=== PATIENT | male | born 1940 | race Caucasian/White ===

== ENCOUNTER 2024-11-18 12:02 | Outpatient (AMB) | payer MEDICARE, OTHER, SELFPAY ==
--- NOTE | 2024-11-18 12:04 | HO.NEPHOV_ITS ---
Vital Signs 11/18/24 12:11 Height 6 ft Weight 150 lb 4 oz BMI 20.4 BP 120/72 Blood Pressure Location Lt brachial Position Sitting Pulse 74 Pulse Source Pulse Oximeter Pulse Oximetry (%) 96 Oxygen Delivery Method Room Air Intake Visit Reasons: ENP: Elevated Serum Creatinine-LVM [employer] Required: No Accompanied by: Self / Same As Patient Allergies No Known Allergies Allergy (Verified 11/18/24 12:11) HPI Comments Details: I had the privilege of seeing Evelio in consultation for mild STEFANIE on a backdrop of acquired solitary kidney following left nephroureterectomy and TURBT for 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 He had lung metastasis in 2019 and had undergone lung resection and radiotherapy. He has hypertension. He is not on any EZEKIEL inhibitor, ARB or diuretics. His blood pressures typically at goal. He recently had a PET scan which was negative. He denies any nausea, vomiting, diarrhea, shortness of breath, pedal edema, hematuria, orthostatic symptoms. He maintains good hydration and has no difficulty voiding. He is in good health and does not take any nonsteroidal anti-inflammatories. His serum creatinine lately has gone up to 1.39. He denied any new systemic complaints. [facility] Medical History (Updated 11/18/24 @ 12:31 by Shawn Ordaz MD) Bladder cancer Right bundle branch block Hypertension Nodular basal cell carcinoma Paroxysmal atrial fibrillation BPH (benign prostatic hyperplasia) GERD (gastroesophageal reflux disease) Hyperlipidemia COPD (chronic obstructive pulmonary disease) CKD (chronic kidney disease) Anxiety Metastasis to lung Metastatic urothelial carcinoma Surgical History History of lobectomy of lung H/O pneumonectomy H/O nephroureterectomy Family History Mother Hypertension Social History (Updated 11/18/24 @ 12:09 by Naomi Bradford MA) Alcohol intake: current Patient Tobacco Use Status: Current someday Tobacco user Review of Systems Const All systems reviewed & are unremarkable except as noted in HPI and below Physical Exam Vital Signs: Last Vital Signs Pulse 74 11/18/24 12:11 BP 120/72 11/18/24 12:11 Pulse Ox 96 11/18/24 12:11 Oxygen Delivery Method Room Air 11/18/24 12:11 BMI result Body Mass Index 20.4 Const General: comfortable and no acute distress Orientation/consciousness: patient oriented x3 HEENT Head: Yes normocephalic Mouth: Normal oral and palatal mucosa present Eyes EOM: EOMs intact bilaterally Neck Neck: Yes supple Resp Auscultation: clear to auscultation bilaterally Cardio Jugular venous distension: no JVD Rate: regular rate GI Palpation (GI): Soft to palpation Auscultation: normal bowel sounds Neuro General: patient oriented x3 and moves all extremities Extrem General: Yes no pedal edema Results Reviewed Nephrology Results: No Data to Display Assessment & Plan Assessment & Plan (1) Hypertension: Code(s): I10 - Essential (primary) hypertension Category: Medical Qualifiers: Hypertension type: primary hypertension Qualified Code(s): I10 - Essential (primary) hypertension (2) Acquired solitary kidney: Code(s): Z90.5 - Acquired absence of kidney Category: Medical (3) CKD stage 3a, GFR 45-59 ml/min: Code(s): N18.31 - Chronic kidney disease, stage 3a Category: Medical Plan Evelio has acquired solitary kidney following left nephroureterectomy in 2017. His serum creatinine has gone up marginally recently most likely due to subtle tubular injury. He has been on PPI for a long time which I asked him to discontinue if there is no strong reason for him to continue it. I encouraged him to maintain good hydration. He has no flank tenderness, edema or urinary symptoms. His blood pressure is currently well controlled on current dose of amlodipine. He is not a diabetic. His serum creatinine is high at baseline due to loss of GFR as well as age related loss of renal function. I encouraged him to repeat lab work in follow-up with me for now. I shall do further exhaustive workup if needed based on evolving data. Answered all questions and follow-up appointment given Orders: Orders Creatinine 6 Months I10 - Essential (primary) hypertension, N18.31 - Chronic kidney disease, stage 3a, Z90.5 - Acquired absence of kidney Electrolytes 6 Months I10 - Essential (primary) hypertension, N18.31 - Chronic kidney disease, stage 3a, Z90.5 - Acquired absence of kidney Protein Creatinine Ratio, Ur 6 Months I10 - Essential (primary) hypertension, N18.31 - Chronic kidney disease, stage 3a, Z90.5 - Acquired absence of kidney Blood Urea Nitrogen 6 Months I10 - Essential (primary) hypertension, N18.31 - Chronic kidney disease, stage 3a, Z90.5 - Acquired absence of kidney Calcium 6 Months I10 - Essential (primary) hypertension, N18.31 - Chronic kidney disease, stage 3a, Z90.5 - Acquired absence of kidney Immunofixation Pnl, Serum 6 Months I10 - Essential (primary) hypertension, N18.31 - Chronic kidney disease, stage 3a, Z90.5 - Acquired absence of kidney Coding Level of Care Code New Pt Level 4 (51491) Diagnoses Primary hypertension I10 Hypertension type: primary hypertension Acquired solitary kidney Z90.5 CKD stage 3a, GFR 45-59 ml/min N18.31
[2024-11-18 12:11] VITALS: BP 120/72; PULSE 74; O2SAT 96; BMI 20.4
--- OUTSIDE RECORDS SUMMARY | 2024-11-18 14:47 | XMS_ITS | Data Portability ---
Author Organization [place] - [facility],, MIKAELA JAMES MD Address [address] [address] Assessment No assessment recorded. Plan of Treatment Reminders Order Date Submit Date Provider Last Modified By Organization Details Last Modified Time Details Appointments None record ed. Lab None record ed. Referral None record ed. Procedures None record ed. Surgeries None record ed. Imaging None record ed. Medication Orders None record ed. Patient TargetsNo targets recorded. Patient InstructionsNo instructions recorded. Reason for Referral None Reported. Medical Equipment None Reported. Allergies No known drug allergies Medications Name Sig Start Date Stop Date Status Note LastModified by Organization Details LastModified Time betamethasone , augmented 0.05 % topical cream APPLY TO ITCHY AREAS IN THE MORNING AND NIGHT FOR 10 DAYS. DO NOT USE ON FACE, GROIN, UNDERARMS. active Not Available Not Available N ot Available amlodipine 2.5 mg tablet TAKE 1 TABLET BY MOUTH EVERY DAY active Not Available Not Available No t Available triamcinolone acetonide 0.1 % topical cream APPLY IN THE MORNING AND EVENING TO TRUNK RASH FOR 1 WEEK NOT FOR FACE active Not Available Not Available No t Available tamsulosin 0.4 mg capsule TAKE 1 CAPSULE BY MOUTH EVERY DAY DIRECTED active Not Available Not Available No t Available pantoprazole 40 mg tablet,delaye d release TAKE 1 TABLET BY MOUTH EVERY DAY active Not Available Not Available No t Available triamcinolone acetonide 0.1 % topical ointment active Not Available Not Available Not Available mupirocin 2 % topical ointment APPLY TWICE A DAY TO AFFECTED AREAS X TILL WE SEE YOU active Not Available Not Available No t Available gabapentin 100 mg capsule TAKE 1 CAPSULE BY MOUTH THREE TIMES A DAY active Not Available Not Available No t Available metoprolol succinate ER 25 mg tablet,extend ed release 24 hr TAKE 1 TABLET BY MOUTH EVERY 12 HOURS active Not Available Not Available No t Available lorazepam 1 mg tablet TAKE 1 TABLET BY MOUTH TWICE A DAY active Not Available Not Available No t Available fluticasone propionate 50 mcg/actuation nasal spray,suspens ion USE ONE SPRAY IN EACH NOSTRIL TWICE DAILY active Not Available Not Available No t Available finasteride 5 mg tablet TAKE 1 TABLET BY MOUTH EVERY DAY active Not Available Not Available No t Available rosuvastatin 10 mg tablet TAKE 1 TABLET BY MOUTH EVERY DAY active Not Available Not Available No t Available Spiriva with HandiHaler 18 mcg and inhalation capsules INHALE THE CONTENTS OF ONE CAPSULE VIA HANDHALER ONCE DAILY active Not Available Not Available N ot Available Eliquis 5 mg tablet TAKE 1 TABLET BY MOUTH TWICE A DAY active Not Available Not Available No t Available Vitals None Recorded Social History None recorded. Functional Status None recorded. Mental Status None recorded. Family History Nothing Reported. Medical History No medical history recorded. Immunizations Vaccine Type Date Status Note Provider Nam e and Address Organization Details Recorded Time COVID-19, mRNA, LNP-S, PF, 100 mcg/0.5mL dose or 50 mcg/0.25mL dose 09/28/2020 completed Mikaela James MD [address] [facility],[address], [place], [address], [facility], 09/28/2020 09:48:42 COVID-19, mRNA, LNP-S, PF, 100 mcg/0.5mL dose or 50 mcg/0.25mL dose 10/27/2020 completed Mikaela James MD [address], [place], [address], [facility] - [facility], 10/27/2020 12:15:53 Past Encounters Encounter ID Performer Location Encounter Start Date Encounter Closed Date Diagnosis/Indication Diagnosis SNOMED-CT Code Diagnosis ICD10 Code Diagnosis Note [id number] MD MIKAELA Vicente MD [address] [place] [address] 09/28/2020 09:17:36 09/28/2020 10:41:14 Administration of viral vaccine [id number] Z23 [id number] MD MIKAELA Vicente MD [address] [place] [address] 10/27/2020 11:34:12 10/27/2020 12:17:27 Administration of viral vaccine [id number] Z23 Health Concerns Section Related Observation LastModified by Organization Detai ls LastModified Time None Recorded Concern Status LastModified by Organization Details LastModified Time None Recorded Advance Directives Directive None Recorded Payers Encounter Date Sequence Insurance Name Policy Number Policy Mclean Covered Member ID Mclean Member ID Guarantor Name 09/28/2020 2 [employer] - SENIOR SERVICES PLAN F (MEDICARE SUPPLEMENT) [id number] 2 Evelio Brumfield [id number] Evelio Brumfield 09/28/2020 1 [place] Evelio Brumfield [id number] Evelio Brumfield 10/27/2020 2 [employer] - SENIOR SERVICES PLAN F (MEDICARE SUPPLEMENT) [id number] 2 Evelio Brumfield [id number] Evelio Brumfield 10/27/2020 1 [place] Evelio Brumfield [id number] 5 Evelio Brumfield
--- OUTSIDE RECORDS SUMMARY | 2024-11-18 14:47 | XMS_ITS | Clinical Summary ---
Author Organization [facility] Address [address] [id number] Care Team Providers Care Business Solutions Director Name Role Phone Akin Forrester MD Primary Care Provider + [phone] Allergies No known active allergies Medications Medication Sig Dispensed Refills Start Date End Date Status rosuvastatin (CRESTOR) tablet 10 mg Take 1 tablet (10 mg total) by mouth daily. 0 Active pantoprazole (PROTONIX) 40 MG tablet Take 1 tablet (40 mg total) by mouth every morning on an empty stomach. 0 Active LORazepam (ATIVAN) 0.5 MG tablet Take 1 tablet (0.5 mg total) by mouth every 6 (six) hours as needed. 0 Active finasteride (PROSCAR) 5 MG tablet Take 1 tablet (5 mg total) by mouth daily. 0 Active Tiotropium [place] Monohydrate (SPIRIVA HANDIHALER IN) Inhale into the lungs. 0 Active tamsulosin (FLOMAX) 0.4 MG CAPS Take 1 capsule (0.4 mg total) by mouth daily. 0 Active metoprolol succinate (TOPROL-XL) 24 hr tablet 25 mg Take by mouth daily. 0 Active apixaban (ELIQUIS) 5 MG TABS tablet Take by mouth every 12 (twelve) hours. 0 Active amLODIPine (NORVASC) tablet 2.5 mg Take 1 tablet (2.5 mg total) by mouth daily. 0 09/23/2020 Active gabapentin (NEURONTIN) 300 MG capsule Take 2 capsules (600 mg total) by mouth 3 (three) times a day as needed. 0 11/02/2020 Active Umeclidinium [place] (Incruse Ellipta) 62.5 MCG/INH AEPB Inhale into the lungs. 0 Active simvastatin (ZOCOR) tablet 10 mg Take 2 tablets (20 mg total) by mouth every night at bedtime. 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 Social History Tobacco Use Types Packs/Day Years Used Date Smoking Tobacco: Every Day Cigarettes 0.5 Smokeless Tobacco: Never Alcohol Use Standard Drinks/Week Comments Yes 0 (1 standard drink = 0.6 oz pur e alcohol) daily Sex and Gender Information Value Date Recorded Sex Assigned at Not on file Gender Identity Not on file Sexual Orientation Not on file Job Start Date Occupation Industry Not on file Not on file Not on file Last Filed Vital Signs Vital Sign Reading Time Taken Comments Blood Pressure 118/68 01/23/2023 11:40 AM EDT Pulse 111 01/23/2023 11:40 AM EDT Temperature 36.7 ??C (98 ??F) 01/23/2023 11:40 AM EDT Respiratory Rate - - Oxygen Saturation 97% 01/23/2023 11:40 AM EDT Inhaled Oxygen Concentration - - Weight 66.8 kg (147 lb 3.2 oz) 01/23/2023 11:40 AM EDT Height 182.9 cm (6') 01/23/2023 11:40 AM EDT Body Mass Index 19.96 01/23/2023 11:40 AM EDT Plan of Treatment Health Maintenance Due Date Last Done Comments Pneumococcal Vaccine (1 of 2 - PCV) 1947 Depression Screening 1953 Preventative Health Evaluation 1959 Tobacco Cessation Counseling 1959 DTap / Tdap / Td (1 - Tdap) 1960 Shingrix-Zoster Vaccine (1 o f 2) 1991 Fall Risk Assessment 2006 RSV Adult > 60+ Yrs or (1 - 1-dose 75+ series) 2016 COVID-19 Vaccine (3 2023-2 5 season) 2024 10/27/2020, 09/28/2020 Influenza Vaccine (#1) 2024 Hepatitis B Vaccines Aged Out No long er eligible based on patient's age to complete this topic RSV Ped < 20 months Aged Out No longe r eligible based on patient's age to complete this topic Care Teams Business Solutions Director Relationship Specialty Start Date End Date Akin Forrester MD [address] [address] PCP - General Internal Medicine 12/30/18
--- OUTSIDE RECORDS SUMMARY | 2024-11-18 14:47 | XMS_ITS | Clinical Summary ---
Author Organization [facility] Address [address] [place] [address] Phone Care Team Providers Care Senior Manager Mmcoe Name Role Phone Akin Forrester MD Primary Care Provider + [phone] Allergies No known active allergies Medications Eliquis 5 mg tablet Take 1 tablet (5 mg total) by mouth 2 (two) times a day. Active finasteride (PROSCAR) 5 mg tablet Take 1 tablet (5 mg total) by mouth 1 (one) time each day. Active LORazepam (ATIVAN) 1 mg tablet Take 1 tablet (1 mg total) by mouth 2 (two) times a day. Active metoprolol succinate (TOPROL-XL) 25 mg 24 hr tablet Take 1 tablet (25 mg total) by mouth every 12 (twelve) hours. Active pantoprazole (PROTONIX) 40 mg EC tablet Take 1 tablet (40 mg total) by mouth 1 (one) time each day. Active simvastatin (ZOCOR) 20 mg tablet Take 1 tablet (20 mg total) by mouth 1 (one) time each day in the evening. Active tamsulosin (FLOMAX) 0.4 mg 24 hr capsule Take 1 capsule (0.4 mg total) by mouth 1 (one) time each day. Active Incruse Ellipta 62.5 mcg/actuation inhalation INHALE 1 DOSE DAILY Active amLODIPine (NORVASC) 2.5 mg tablet Take by mouth 1 (one) time each day. Active amLODIPine (NORVASC) 5 mg tablet Take 1 tablet (5 mg total) by mouth 1 (one) time each day. 07/17/20 24 025 Discontinued atorvastatin (Lipitor) 10 mg tablet Take 1 tablet (10 mg total) by mouth. 12/11/19 06 025 Discontinued fluticasone propionate (FLONASE) 50 mcg/actuation nasal spray Administer 1 spray into each nostril 2 (two) times a day. 025 Discontinued Active Problems Problem Noted Date Diagnosed Date Secondary malignant neoplasm of right lung 07/17 Hypertension 06/27/2021 Overview (08/25/2024): Last Assessment & Plan: 120/60 in office today, well-controlled. Continue metoprolol and amlodipine. Hyperlipidemia 06/27/2021 Overview (08/25/2024): Last Assessment & Plan: Last lipid panel from March 2023. Total cholesterol 127, HDL 48, LDL 62. Continue statin therapy. Paroxysmal atrial fibrillation 12/13/2020 Overview (08/25/2024): Last Assessment & Plan: He presents in sinus rhythm. He has episodic PAF. He will continue rate control with metoprolol. Holter reviewed. He will continue anticoagulation with Eliquis 5 mg twice daily as his age is less than 80, weight is greater than 60 kg, creatinine is less than 1.5. Risks and benefits of anticoagulation therapy have been discussed with the patient. He verbalizes understanding and agrees to continue. Right bundle branch block 12/13/2020 Overview (08/25/2024): Last Assessment & Plan: I did review with him his ECG today does demonstrate the right bundle branch block which he has had in the past. Encounters Date Type Department Care Team Description 11/06/2024 2:00 PM EST Office Visit [facility] Hematology Oncology [address] [place] [phone] Lizzy Gil DO Urothelial cancer (CMS/HCC) (Primary Dx) 10/29/2024 Telephone [facility] Hematology Oncology [address] [place] [phone] Lizzy Gil DO 10/02/2024 Telephone [facility] Hematology Oncology [address] [place] [address] Lizzy Gil, 09/16/2024 12:27 PM EST - 09/16/2024 11:59 PM EST Hospital Encounter [facility] PET Scan [address] [place] [address] Secondary malignant neoplasm of right lung (CMS/HCC) Discharge Disposition: Home or Self Care from Last 3 Months Immunizations Name Administration Dates Next Due Moderna SARS-CoV-2 COVID-19, mRNA, LNP-S, preservative free 10/27/2020,09/28/2020 Medical History Medical History Date Comments Anxiety DX:Anxiety Chronic kidney disease DX:Chroni c kidney disease COPD (chronic obstructive pu lmonary disease) (CMS/HCC) DX:COPD (chronic obstructive pulmonary disease) (HCC) GERD (gastroesophageal reflux disease) DX:GERD (gastroesophageal reflux disease) Benign prostatic hyperplasia DX: Benign prostatic hyperplasia Family History Medical History Relation Name Comments Other: pacemaker Brother Relation Name Status Comments Brother Father Mother Social History Tobacco Use Types Packs/Day Years Used Date Smoking Tobacco: Some Days Smokeless Tobacco: Never Tobacco Cessation:Ready to Q uit: Not Asked; Counseling Given: Not Answered Comments:Couple times a day. Alcohol Use Standard Drinks/Week Comments Yes 0 (1 standard drink = 0.6 oz pur e alcohol) Sex and Gender Information Value Date Recorded Sex Assigned at Not on file Legal Sex Male 11:29 AM EST Gender Identity Not on file Sexual Orientation Not on file Obstetrics History Last Filed Vital Signs Vital Sign Reading Time Taken Comments Blood Pressure 137/71 11/06/2024 1:53 PM EST Pulse 69 11/06/2024 1:53 PM EST Temperature 37.1 ??C (98.8 ??F) 11/06/2024 1:53 PM ES T Respiratory Rate 16 07/30/2024 2:21 PM EST Oxygen Saturation 100% 11/06/2024 1:53 PM EST Inhaled Oxygen Concentration - - Weight 69.3 kg (152 lb 12.8 oz) 11/06/2024 1:53 PM EST Height 182.9 cm (6') 11/06/2024 1:53 PM EST Body Mass Index 20.72 11/06/2024 1:53 PM EST Plan of Treatment Upcoming Encounters Date Type Department Care Team (Late st Contact Info) Description 02/12/2025 2:00 PM EDT Appointment [facility] CT Scan [address] [place] [phone] 02/19/2025 2:00 PM EDT Appointment [facility] Radiation Oncology [address] [phone] Maeve Hinton, EILEEN [address], [place] [phone] 11/05/2025 1:30 PM EST Office Visit [facility] Hematology Oncology [address] [place] [phone] Lizzy Gil, [address] [place] [address] Health Maintenance Due Date Last Done Comments DTaP,Tdap,and Td Vaccines (1 - Tdap) 1959 RSV Immunization Patients 60+ Years Old (1 - 1-dose 75+ series) 2016 Zoster Vaccines (2 of 2) 05/05/2021 03/10/2021 Depression Screening 08/17/2022 Falls Risk Assessment 08/17/2022 Medicare Annual Wellness Visit 08/17/2022 Social Influencers of Health Screening 08/17/2022 COVID-19 Vaccine ( season) 2024 07/28/2022, 07/25/2021, 10/27/2020, Additional history exists Hypertension/CHF/CAD Annual BMP Blood Test 07/24/2025 07/24/2024 Cholesterol Screening (Lipid Panel) 12/09/2028 12/10/2023 Pneumococcal Vaccine: 50+ Years Completed 10/09/2023, 07/23/2015 Influenza Vaccine Completed 06/25/2024, , 05/26/2022, Additional history exists HIB Vaccines Aged Out No longer eligi ble based on patient's age to complete this topic HPV Vaccines Aged Out No longer eligi ble based on patient's age to complete this topic Hepatitis A Vaccines Aged Out No long er eligible based on patient's age to complete this topic Hepatitis B Vaccines Aged Out No long er eligible based on patient's age to complete this topic IPV Vaccines Aged Out No longer eligi ble based on patient's age to complete this topic MMR Vaccines Aged Out No longer eligi ble based on patient's age to complete this topic Meningococcal ACWY Vaccine Aged Out N o longer eligible based on patient's age to complete this topic Meningococcal B Vacine Aged Out No lo nger eligible based on patient's age to complete this topic RSV Immunization Patients Under 20 months Aged Out No longer eligible based on patient's age to complete this topic Varicella Vaccines Aged Out No longer eligible based on patient's age to complete this topic Procedures Procedure Name Priority Date/Time Associated Diagnosis Comments PET CT SKULL TO MID THIGH INITIAL STAT 09/16/2024 1:49 PM EST Secondary malignant neoplasm of right lung (CMS/HCC) CREATININE, SERUM Routine 07/24/2024 1:5 4 PM EST Secondary malignant neoplasm of right lung (CMS/HCC) LIPID PANEL Routine 12/10/2023 from Last 3 Months or Most Recently Relevant to Health Maintenance Results * PET CT Skull to Mid Thigh Initial (09/16/2024 1:49 PM EST) Anatomical Region Laterality Modality Body Radiographic Suze ging 09/17/2024 5:03 AM EST Impressions 09/17/2024 5:55 AM EST 1. ??Interval decrease in FDG activity of juxtapleural nodule in the right upper lobe and mild asymmetric increased FDG activity in the right lung apex corresponding to asymmetric pleural-parenchymal scarring likely representing posttreatment change 2. ??Persistent right hilar FDG activity 3. ??Other scattered nodules/opacities similar to prior. ??These can be followed with chest CT. Please note: The CT was acquired at a low radiation dose settings. ??The images are of nondiagnostic quality and used solely for purposes of attenuation correction and slice localization for the PET scan. ??If a diagnostic CT study is desired it must be ordered separately. -------- FINAL REPORT -------- Dictated By: Kaitlin Zavala Dictated Date: 09/17/2024 05:03 ET Assigned Physician: Kaitlin Zavala Reviewed and Electronically Signed By: Kaitlin Zavala Signed Date: 09/17/2024 05:55 ET Workstation ID: [id number] Transcribed By: Self Edit Transcribed Date: 09/17/2024 05:03 ET Narrative 09/17/2024 5:55 AM EST INDICATION: lung cancer restaging. ??Metastatic urothelial carcinoma involving the lung status post left upper lobe wedge resection in 2016) and SBRT left lower lobe metastases in 2019. TECHNIQUE: FDG PET-CT imaging was performed from the skull bases through the thighs in a single acquisition with data set reconstructed in axial, coronal, and sagittal planes at the computer workstation with fused data from both the PET imaging study and attenuation correction CT. The CT portion of the examination was done strictly for attenuation correction and is not a true diagnostic CT examination. DLP: ??419 mGy-cm Radiopharmaceutical: 13.5 mCi of F-18 FDG IV. Blood glucose: 88 mg/dl. COMPARISON: Correlation is made with prior chest CT dated July 2024 as well as prior PET/CT dated August 2023. FINDINGS: HEAD AND NECK: No abnormal FDG activity. THORAX: Asymmetric right-sided calcified pleural parenchymal scarring SUV Max 2.8 (previously 1.7 SUV max) which may represent stigmata of posttreatment change. Juxtapleural nodule in the right upper lobe SUV max 2.1 (previously 3.6). ??Tiny sub-5 mm nodules/opacities in the right upper lobe/pleural region SUV max 2.0; overall similar to prior possibly representing postinfectious/postinflammatory etiology versus scarring. ??Attention to this area can be made on follow-up imaging. 8 mm juxtapleural opacity in the right lower lobe lung base SUV max 1.6; similar to prior. Chronic tree-in-bud/centrilobular nodules in the right lower lobe SUV max 2.5 (previously 2.8). Architectural distortion in the superior segment of the left lower lobe SUV max 2.0; similar to prior in keeping with site of prior radiation therapy. ??Postsurgical change in the left upper lobe. Right paratracheal lymph nodes SUV max 2.7 and right hilar lymph node SUV max 3.5 (previously 3.2) (mediastinal blood pool SUV Max 3.2). ABDOMEN/PELVIS: No abnormal FDG activity. ??Status post left nephrectomy. ??Diverticulosis with nonspecific scattered bowel uptake. ??Prominent prostate gland. ??Atherosclerosis. ??Thickening of the left adrenal gland without significant FDG activity. MUSCULOSKELETAL: Asymmetric FDG activity right iliac bone SUV max 2.1 (previously 2.2); similar to prior. ??Asymmetric FDG activity along the right iliac sides near the sacroiliac joint corresponding to focal area of sclerosis SUV Max 2.1; similar to prior. Procedure Note Kaitlin Zavala MD - 09/17/2024 INDICATION: lung cancer restaging. Metastatic urothelial carcinomainvolving the lung status post left upper lobe wedge resection in 2016)and SBRT left lower lobe metastases in 2019. TECHNIQUE: FDG PET-CT imaging was performed from the skull bases throughthe thighs in a single acquisition with data set reconstructed in axial,coronal, and sagittal planes at the computer workstation with fused datafrom both the PET imaging study and attenuation correction CT. The CTportion of the examination was done strictly for attenuation correctionand is not a true diagnostic CT examination. DLP: 419 mGy-cm Radiopharmaceutical: 13.5 mCi of F-18 FDG IV. Blood glucose: 88 mg/dl. COMPARISON: Correlation is made with prior chest CT dated July 2024 aswell as prior PET/CT dated August 2023. FINDINGS: HEAD AND NECK: No abnormal FDG activity. THORAX: Asymmetric right-sided calcified pleural parenchymal scarring SUVMax 2.8 (previously 1.7 SUV max) which may represent stigmata ofposttreatment change. Juxtapleural nodule in the right upper lobe SUV max 2.1 (previously 3.6).Tiny sub-5 mm nodules/opacities in the right upper lobe/pleural region SUVmax 2.0; overall similar to prior possibly representingpostinfectious/postinflammatory etiology versus scarring. Attention tothis area can be made on follow-up imaging. 8 mm juxtapleural opacity in the right lower lobe lung base SUV max 1.6;similar to prior. Chronic tree-in-bud/centrilobular nodules in the right lower lobe SUV max2.5 (previously 2.8). Architectural distortion in the superior segment of the left lower lobeSUV max 2.0; similar to prior in keeping with site of prior radiationtherapy. Postsurgical change in the left upper lobe. Right paratracheal lymph nodes SUV max 2.7 and right hilar lymph node SUVmax 3.5 (previously 3.2) (mediastinal blood pool SUV Max 3.2). ABDOMEN/PELVIS: No abnormal FDG activity. Status post left nephrectomy.Diverticulosis with nonspecific scattered bowel uptake. Prominentprostate gland. Atherosclerosis. Thickening of the left adrenal glandwithout significant FDG activity. MUSCULOSKELETAL: Asymmetric FDG activity right iliac bone SUV max 2.1(previously 2.2); similar to prior. Asymmetric FDG activity along theright iliac sides near the sacroiliac joint corresponding to focal area ofsclerosis SUV Max 2.1; similar to prior. IMPRESSION: 1. Interval decrease in FDG activity of juxtapleural nodule in the rightupper lobe and mild asymmetric increased FDG activity in the right lungapex corresponding to asymmetric pleural-parenchymal scarring likelyrepresenting posttreatment change 2. Persistent right hilar FDG activity 3. Other scattered nodules/opacities similar to prior. These can befollowed with chest CT. Please note: The CT was acquired at a low radiation dose settings. The images are ofnondiagnostic quality and used solely for purposes of attenuationcorrection and slice localization for the PET scan. If a diagnostic CTstudy is desired it must be ordered separately. -------- FINAL REPORT -------- Dictated By: Kaitlin Zavala Dictated Date: 09/17/2024 05:03 ET Assigned Physician: Kaitlin Zavala Reviewed and Electronically Signed By: Kaitlin Zavala Signed Date: 09/17/2024 05:55 ET Workstation ID: [id number] Transcribed By: Self Edit Transcribed Date: 09/17/2024 05:03 ET us Lizzy Gil DO IMG NM PROCEDURES Fin al Result * (ABNORMAL) Creatinine (07/24/2024 1:54 PM EST) Creatinine 1.40(H) 0.70 - 1.30 mg/dL LAB CHEMISTRY METHOD 07/24/2024 5:26 PM EST [facility] eGFR 50(L) >=60 mL/min/1. 73m2 LAB CHEMISTRY METHOD 07/24/2024 5:26 PM EST [facility] Comment:Calculation based on the??Chronic Kidney Disease Epidemiology Collaboration (CKD-EPI) equation refit??without adjustment for race. Blood Venous blood specimen / Unknown Venipuncture / Unknown 07/24/2024 1:54 PM EST 07/24/2024 4:42 PM EST Melly Devlin MD LAB BLOOD ORDERABLES Final R esult [facility]) [facility] [address] [place] [address], * Lipid panel (12/10/2023) Triglycerides 81 <=150 mg/dL Cholesterol 135 <=200 mg/dL HDL 49 >=39 mg/dL LDL Cholesterol 70 0 - 130 mg/dL Blood Venous blood specimen / Unknown Historical Provider LAB BLOOD ORDERABLES Alee l Result from Last 3 Months or Most Recently Relevant to Health Maintenance Insurance MEDICARE [facility] Care Teams Senior Manager Mmcoe Relationship Specialty Start Date End Date Akin Forrester MD [address] [place] [id number] PCP - General Internal Medicine 02/05/18
--- OUTSIDE RECORDS SUMMARY | 2024-11-18 14:47 | XMS_ITS | Encounter Summary ---
Author Organization [facility] Address [address] [place] [address] Care Team Providers Care Machine Tech Name Role Phone Akin Forrester MD Primary Care Provider + [phone] Encounter Details Date Type Department Care Team (Late st Contact Info) Description 10/29/2024 Telephone [facility] Hematology Oncology [address] [place] [phone] Lizzy Gil DO [address] [place] [address] Social History Tobacco Use Types Packs/Day Years Used Date Smoking Tobacco: Some Days Smokeless Tobacco: Never Alcohol Use Standard Drinks/Week Comments Yes 0 (1 standard drink = 0.6 oz pur e alcohol) Sex and Gender Information Value Date Recorded Sex Assigned at Not on file Legal Sex Male 11:29 AM EST Gender Identity Not on file Sexual Orientation Not on file documented as of this encounter Progress Notes * Lizzy Gil DO - 11/03/2024 12:30 PM EST Patient has not been seen in office since January 2023 Needs to be seen in order to continue follow up and appropriate care, and ordering future scans * Deidre Delvalle MA - 10/29/2024 9:55 AM EST is back in office this Sunday. can you please advise. * Martha Mcbride - 10/29/2024 9:31 AM EST [place] PATIENT Patient states he has had several scans that report that everything is fine and normal . Asks if the appt on 11/06 with MD is necessary. Asks for call [phone] documented in this encounter Plan of Treatment Upcoming Encounters Date Type Department Care Team (Late st Contact Info) Description 02/12/2025 2:00 PM EDT Appointment [facility] CT Scan [address] [place] [phone] 02/19/2025 2:00 PM EDT Appointment [facility] Radiation Oncology [address] [phone] Maeve Hinton, GENERAL CLERK [address] [place] [address] 11/05/2025 1:30 PM EST Office Visit [facility] Hematology Oncology [address] [place] [phone] Lizzy Gil, DO [address] [place] [address] documented as of this encounter Visit Diagnoses Not on filedocumented in this encounter Care Teams Machine Tech Relationship Specialty Start Date End Date Akin Forrester MD [address] [place] [id number] PCP - General Internal Medicine 02/05/18 documented as of this encounter
--- OUTSIDE RECORDS SUMMARY | 2024-11-18 14:47 | XMS_ITS | Encounter Summary ---
Author Organization [facility] Address [address] [place] [address] Care Team Providers Care Pollution Control Chemist Name Role Phone Akin Forrester MD Primary Care Provider + [phone] Reason for Visit * Reason Comments Follow-up Encounter Details Date Type Department Care Team ([facility] st Contact Info) Description 11/06/2024 2:00 PM EST Office Visit [facility] Hematology Oncology [address] [place] [phone] Lizzy Gil, DO [address] [place] [address] Urothelial cancer (CMS/HCC) (Primary Dx) Social History Tobacco Use Types Packs/Day Years [...] on file documented as of this encounter Last Filed Vital Signs Vital Sign Reading Time Taken Comments Blood Pressure 137/71 11/06/2024 1:53 PM EST Pulse 69 11/06/2024 1:53 PM EST Temperature 37.1 ??C (98.8 ??F) 11/06/2024 1:53 PM ES T Respiratory Rate - - Oxygen Saturation 100% 11/06/2024 1:53 PM EST Inhaled Oxygen Concentration - - Weight 69.3 kg (152 lb 12.8 oz) 11/06/2024 1:53 PM EST Height 182.9 cm (6') 11/06/2024 1:53 PM EST Body Mass Index 20.72 11/06/2024 1:53 PM EST documented in this encounter Progress Notes * Lizzy Gil, DO - 11/06/2024 2:00 PM EST Hematology/Oncology Progress Note 11/06/24 Subjective Patient identifier: 84 y.o. male with metastatic urothelial cancer Interim history: Evelio is here for follow up He had radiation to the lung one year ago . Has not been seen since 2022, was lost to follow up Seen by PCP and urology recently. Last month had URI and sinus infection, better now after antibiotics. His appetite is good overall. No new severe back pain or bone pain. Appetite is fine. Constitutional: see above Resp/CV: No cough, shortness of breath, chest pain GI: No nausea, vomiting, diarrhea, abdominal pain Skin: No rashes Neuro: No headaches, dizziness, neuropathy Musculoskeletal: No bone pain, no joint pain. Hem/Lymph : No bruising or bleeding Objective Last Vitals Vitals: 11/06/24 1353 BP: 137/71 Pulse: 69 Temp: 37.1 ??C (98.8 ??F) SpO2: 100% ECO General: well appearing, in no acute distress HENT: no scleral icterus Lymph: No palpable cervical, supraclavicular or axillary adenopathy. Resp: clear to auscultation bilaterally Cardio: regular rate and rhythm, Abdomen: soft non tender, non distended Neuro: alert and oriented, normal speech Medications Current Outpatient Medications: amLODIPine (NORVASC) 2.5 mg tablet, Take by mouth 1 (one) time each day., Disp: , Rfl: amLODIPine (NORVASC) 5 mg tablet, Take 1 tablet (5 mg total) by mouth 1 (one) time each day., Disp:, Rfl: Eliquis 5 mg tablet, Take 1 tablet (5 mg total) by mouth 2 (two) times a day., Disp: , Rfl: finasteride (PROSCAR) 5 mg tablet, Take 1 tablet (5 mg total) by mouth 1 (one) time each day., Disp: , Rfl: Incruse Ellipta 62.5 mcg/actuation inhalation, INHALE 1 DOSE DAILY, Disp: , Rfl: LORazepam (ATIVAN) 1 mg tablet, Take 1 tablet (1 mg total) by mouth 2 (two) times a day., Disp: , Rfl: metoprolol succinate (TOPROL-XL) 25 mg 24 hr tablet, Take 1 tablet (25 mg total) by mouth every 12 (twelve) hours., Disp: , Rfl: pantoprazole (PROTONIX) 40 mg EC tablet, Take 1 tablet (40 mg total) by mouth 1 (one) time each day., Disp: , Rfl: simvastatin (ZOCOR) 20 mg tablet, Take 1 tablet (20 mg total) by mouth 1 (one) time each day in theevening., Disp: , Rfl: tamsulosin (FLOMAX) 0.4 mg 24 hr capsule, Take 1 capsule (0.4 mg total) by mouth 1 (one) time each day., Disp: , Rfl: atorvastatin (Lipitor) 10 mg tablet, Take 1 tablet (10 mg total) by mouth., Disp: , Rfl: fluticasone propionate (FLONASE) 50 mcg/actuation nasal spray, Administer 1 spray into each nostril2 (two) times a day., Disp: , Rfl: Allergies No Known Allergies Past medical history, past surgical history, and family history reviewed. Medical history Past Medical History: Diagnosis Date Anxiety DX:Anxiety Benign prostatic hyperplasia DX:Benign prostatic hyperplasia Chronic kidney disease DX:Chronic kidney disease COPD (chronic obstructive pulmonary disease) ([facility]/HCC) DX:COPD (chronic obstructive pulmonary disease) ([facility]) GERD (gastroesophageal reflux disease) DX:GERD (gastroesophageal reflux disease) Surgical history No past surgical history on file. Family history Family History Problem Relation Name Age of Onset Other (Other: pacemaker ) Brother Social history lives with who has dementia Labs: Relevant data reviewed. Lab Results Component Value Date CREATININE 1.40 (H) 07/24/2024 Imaging Studies Imaging studies reviewed. INDICATION: lung cancer restaging. Metastatic urothelial carcinoma involving the lung status post [...] and attenuation correction CT. The CT portion ofthe examination was done strictly for attenuation correction [...] upper lobe SUV max 2.1 (previously 3.6). Tiny sub-5 mm nodules/opacities in the right upper lobe/pleural region SUV max 2.0; overall similar to prior possibly representing postinfectious/postinflammatory etiology versus scarring. Attention to this area can be made on [...] keeping with site of prior radiation therapy. Postsurgical change in the left upper lobe. Right paratracheal lymph nodes SUV max 2.7 and right hilar lymph node SUV max 3.5 (previously 3.2) (mediastinal blood pool SUV Max 3.2). ABDOMEN/PELVIS: No abnormal FDG activity. Status post left nephrectomy. Diverticulosis with nonspecific scattered bowel uptake. Prominent prostate gland. Atherosclerosis. Thickening of the left adrenal gland without significant FDG activity. MUSCULOSKELETAL: Asymmetric FDG activity right iliac bone SUV max 2.1 (previously 2.2); similar to prior. Asymmetric FDG activity along the right iliac sides near the sacroiliac joint corresponding to focal area of sclerosis SUV Max 2.1; similar to prior. IMPRESSION: 1. Interval decrease in FDG activity of juxtapleural nodule in the right upper lobe and mild asymmetric increased FDG activity in the right lung apex corresponding to asymmetric pleural-parenchymal scarring likely representing posttreatment change 2. Persistent right hilar FDG activity 3. Other scattered nodules/opacities similar to prior. These can be followed with chest CT. -------- FINAL REPORT -------- Dictated By: Kaitlin Zavala Dictated Date: 09/17/2024 05:03 ET Assigned Physician: Kaitlin Zavala Reviewed and Electronically Signed By: Kaitlin Zavala Signed Date: 09/17/2024 05:55 ET Workstation ID: [id number] Transcribed By: Self Edit Transcribed Date: 09/17/2024 05:03 ET Assessment & Plan 84 y.o. presents for follow up of metastatic urothelial carcinoma. He has had multiple recurrent slow moving metastasis to the lungs over past six years, had one resected and two radiated. Follow up PET scan shows no progressive metastatic disease. Given no bulky disease would not recommend systemic therapy at this time . He has 8mm nodule in RLL would monitor this for now. Metastatic urothelial carcinoma Continue to monitor , would not initiate on systemic chemotherapy No new large areas of disease He has CT Scan planned for two weeks from now with rad onc- will discuss likely they can move this out three months given he just had PET scan He prefers to return here only in one year which is fine only if he has scans with radiation oncology in between Sign Randi Gil DO - Hematology/Oncology [facility] CC: Akin Forrester MD documented in this encounter Plan of Treatment Upcoming Encounters Date Type Department Care Team (Late st Contact Info) Description 02/12/2025 2:00 PM EDT Appointment [facility] CT Scan [address] [place] [address] 02/19/2025 2:00 PM EDT Appointment [facility] Radiation Oncology [address] [phone] Maeve Hinton NP [address] [place] [address] 11/05/2025 1:30 PM EST Office Visit [facility] Hematology Oncology [address] [place] [address] Lizzy Gil DO [address] [place] [address] documented as of this encounter Visit Diagnoses Diagnosis Urothelial cancer (CMS/HCC)- Primary documented in this encounter Discontinued Medications Medication Sig Discontinue Reason Start Date End Da te amLODIPine (NORVASC) 5 mg tablet Take 1 tablet (5 mg total) by mouth 1 (one) time each day. 07/17/2024 11/06/2024 atorvastatin (Lipitor) 10 mg tablet Take 1 tablet (10 mg total) by mouth. 12/10/2005 11/06/2024 fluticasone propionate (FLONASE) 50 mcg/actuation nasal spray Administer 1 spray into each nostril 2 (two) times a day. 11/06/2024 documented as of this encounter Historical Medications * This list may reflect changes made after this encounter. amLODIPine (NORVASC) 2.5 mg tablet Take by mouth 1 (one) time each day. added in this encounter Care Teams Pollution Control Chemist Relationship Specialty Start Date End Date Akin Forrester MD [address] [place] [id number] PCP - General Internal Medicine 02/05/18 documented as of this encounter
== END 2024-11-18 12:40 | disposition home or self-care (01) ==
LOC: HO.HKAS 12:03
PROVIDERS: PCP Internal Medicine; Referring Provider Internal Medicine; Visit Provider Internal Medicine Nephrology
DX: I10 Essential (primary) hypertension (principal); Z90.5 Acquired absence of kidney; N18.31 Chronic kidney disease, stage 3a
CPT/HCPCS: 99204

== ENCOUNTER → 2024-11-18 12:02 | Outpatient (BNVA) | payer MEDICARE, OTHER, SELFPAY | PROVIDERS: PCP Internal Medicine; Referring Provider Internal Medicine; Visit Provider Internal Medicine Nephrology | DX: I12.9 Hypertensive chronic kidney disease with stage 1 through stage 4 chronic kidney disease, or unspecified chronic kidney disease (principal); N18.31 Chronic kidney disease, stage 3a; Q60.0 Renal agenesis, unilateral; Z90.5 Acquired absence of kidney | CPT/HCPCS: 99202 ==

== ENCOUNTER 2025-05-19 12:47 | Outpatient (AMB) | payer MEDICARE, OTHER, SELFPAY ==
--- OUTSIDE RECORDS SUMMARY | 2025-04-16 02:30 | XMS_ITS ---
Author Organization [facility] Address [address] [place], [place] [id number] Care Team Providers Care Manager State Name Role Phone ARIELLE CASTILLO Primary Care Provider REASON FOR VISIT labs Encounters Encounter Location Date Provider Diagnosis [facility] [address] [place] [address] 04/16/2025 ARIELLE CASTILLO Abnormal protein electrophoresis R77.9 ASSESSMENTS Encounter Date Diagnosis Assessment Notes Treatment Notes Treatment Clinical Notes Section Notes 04/16/2025 Abnormal protein electrophoresis (ICD-10 - R77.9) PLAN OF TREATMENT Future Test Test Name Order Date Immunofixation, [id number] 05/14/2025 Immunoglobulin G, Qn, [id number] 05/14 Immunoglobulin M, Qn, [id number] 05/14 Immunoglobulin D, Quant, Serum-[id number] Free K+L Lt Chains,Qn,[id number] Protein Elec + Interp, Serum-[id number] 12/2024 BMP8+[id number] 05/14/2025 Next Appt Details Provider Name:ARIELLE KIM, 09/29/2025 02:15:00 PM, [address] [place], [address],
--- OUTSIDE RECORDS SUMMARY | 2025-05-05 11:39 | XMS_ITS ---
Author Organization [facility] Address [address] [place] [phone] Care Team Providers Care International Account Manager Name Role Phone ARIELLE CASTILLO Primary Care Provider [phone] REASON FOR VISIT Pt there now Encounters Encounter Location Date Provider Diagnosis [facility] [address] [place] [phone] 05/05/2025 ARIELLE CASTILLO PLAN OF TREATMENT Next Appt Details Provider Name:ARIELLE KIM, 09/29/2025 02:15:00 PM, [address] [place], [address],
--- OUTSIDE RECORDS SUMMARY | 2025-05-05 18:29 | XMS_ITS ---
Author Organization [facility] Address [address] [place] [phone] Care Team Providers Care Baggage Inspector Name Role Phone ARIELLE CASTILLO Primary Care Provider [phone] gonzalez Encounters Encounter Location Date Provider Diagnosis [address] [address] 05/05/2025 ARIELLE CASTILLO PLAN OF TREATMENT Next Appt Details Provider Name:ARIELLE KIM, 09/29/2025 02:15:00 PM, [address] [place], [address],
--- OUTSIDE RECORDS SUMMARY | 2025-05-07 12:24 | XMS_ITS ---
Author Organization [facility] Address [address] [place] [phone] Care Team Providers Care Small Stock Facer Name Role Phone ARIELLE CASTILLO Primary Care Provider [phone] barnett Encounters Encounter Location Date Provider Diagnosis [address] [address] 05/07/2025 ARIELLE CASTILLO PLAN OF TREATMENT Next Appt Details Provider Name:ARIELLE KIM, 09/29/2025 02:15:00 PM, [address] [place], [address],
--- OUTSIDE RECORDS SUMMARY | 2025-05-08 11:10 | XMS_ITS ---
Author Organization [facility] Address [address] [place] [phone] Care Team Providers Care Edging Catcher Name Role Phone ARIELLE CASTILLO Primary Care Provider REASON FOR VISIT dr magallon Encounters Encounter Location Date Provider Diagnosis [facility] [address] [place] [phone] 05/08/2025 ARIELLE CASTILLO PLAN OF TREATMENT Next Appt Details Provider Name:ARIELLE KIM, 09/29/2025 02:15:00 PM, [address] [place], [address],
--- NOTE | 2025-05-19 12:56 | HO.NEPHOV ---
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 He had lung metastasis in 2019 and had undergone lung resection and radiotherapy. He has hypertension. He is not on any EZEKIEL inhibitor, ARB or diuretics. His blood pressures is typically at goal. He recently had a PET scan which was negative. He denies any nausea, vomiting, diarrhea, shortness of breath, pedal edema, hematuria, orthostatic symptoms. He maintains good hydration and has no difficulty voiding. He is in good health and does not take any nonsteroidal anti-inflammatories. His serum creatinine lately has gone up to 1.6. He has a monoclonal band by immunofixation. He denied any new systemic complaints. [facility] Medical History (Updated 05/19/25 @ 12:59 by Shawn Ordaz MD) Bladder cancer Right bundle branch block Hypertension Nodular basal cell carcinoma Paroxysmal atrial fibrillation BPH (benign prostatic hyperplasia) GERD (gastroesophageal reflux disease) Hyperlipidemia COPD (chronic obstructive pulmonary disease) CKD (chronic kidney disease) Anxiety Metastasis to lung Metastatic urothelial carcinoma Surgical History History of lobectomy of lung H/O pneumonectomy H/O nephroureterectomy Family History Mother Hypertension Social History Alcohol intake: current Patient Tobacco Use Status: Current someday Tobacco user Review of Systems Const All systems reviewed & are unremarkable except as noted in HPI and below Physical Exam Vital Signs: Last Vital Signs Pulse 66 05/19/25 13:17 BP 116/68 05/19/25 13:17 Pulse Ox 98 05/19/25 13:17 Oxygen Delivery Method Room Air 05/19/25 13:17 BMI result Body Mass Index 19.3 Const General: comfortable and no acute distress Orientation/consciousness: patient oriented x3 HEENT Head: Yes normocephalic Mouth: Normal oral and palatal mucosa present Eyes EOM: EOMs intact bilaterally Neck Neck: Yes supple Resp Auscultation: clear to auscultation bilaterally Cardio Jugular venous distension: no JVD Rate: regular rate GI Palpation (GI): Soft to palpation Auscultation: normal bowel sounds General: Yes no CVA tenderness Back/Spine/Pelvis Back: no CVA tenderness Skin General skin exam: no rashes or lesions noted Neuro General: patient oriented x3 and moves all extremities Extrem General: Yes no pedal edema Assessment & Plan Assessment & Plan (1) CKD stage 3a, GFR 45-59 ml/min: Code(s): N18.31 - Chronic kidney disease, stage 3a Category: Medical (2) Acquired solitary kidney: Code(s): Z90.5 - Acquired absence of kidney Category: Medical (3) Hypertension: Code(s): I10 - Essential (primary) hypertension Category: Medical Qualifiers: Hypertension type: primary hypertension Qualified Code(s): I10 - Essential (primary) hypertension (4) MGUS (monoclonal gammopathy of unknown significance): Code(s): D47.2 - Monoclonal gammopathy Category: Medical Plan Evelio has acquired solitary kidney following left nephroureterectomy in 2017. His serum creatinine has gone up marginally I encouraged him to maintain good hydration. He has no flank tenderness, edema or urinary symptoms. His blood pressure is currently well controlled on current dose of amlodipine. He is not a diabetic. His serum creatinine is high at baseline due to loss of GFR as well as age related loss of renal function. He has a monoclonal band by immunofixation. He has MGUS but given current labs, its unlikely that he has light chain related renal disease. He follows up with Oncologist. I encouraged him to repeat lab work in follow-up with me for now. Answered all questions and follow-up appointment given Orders: Orders Calcium 4 Months D47.2 - Monoclonal gammopathy, I10 - Essential (primary) hypertension, N18.31 - Chronic kidney disease, stage 3a, Z90.5 - Acquired absence of kidney Creatinine 4 Months D47.2 - Monoclonal gammopathy, I10 - Essential (primary) hypertension, N18.31 - Chronic kidney disease, stage 3a, Z90.5 - Acquired absence of kidney Blood Urea Nitrogen 4 Months D47.2 - Monoclonal gammopathy, I10 - Essential (primary) hypertension, N18.31 - Chronic kidney disease, stage 3a, Z90.5 - Acquired absence of kidney Electrolytes 4 Months D47.2 - Monoclonal gammopathy, I10 - Essential (primary) hypertension, N18.31 - Chronic kidney disease, stage 3a, Z90.5 - Acquired absence of kidney Coding Level of Care Code Est Pt Level 4 (02966) Diagnoses CKD stage 3a, GFR 45-59 ml/min N18.31 Acquired solitary kidney Z90.5 Primary hypertension I10 Hypertension type: primary hypertension MGUS (monoclonal gammopathy of unknown significance) D47.2
[2025-05-19 13:17] VITALS: BP 116/68; PULSE 66; O2SAT 98; BMI 19.3
--- OUTSIDE RECORDS SUMMARY | 2025-05-19 15:10 | XMS_ITS | Clinical Summary ---
Author Organization [facility] Address [address] [phone] Care Team Providers Care Candy Counter Clerk Name Role Phone Akin Forrester MD Primary Care Provider + [phone] Allergies No known active allergies Medications Medication [...] total) by mouth daily. 0 Active Tiotropium Elizabeth Monohydrate (SPIRIVA HANDIHALER IN) Inhale into the [...] day as needed. 0 11/02/2020 Active Umeclidinium Elizabeth (Incruse Ellipta) 62.5 MCG/INH AEPB Inhale into [...] 111 01/23/2023 11:40 AM EDT Temperature 36.7 C (98 F) 01/23/2023 11:40 AM EDT Respiratory Rate - [...] 1-dose 75+ series) 2016 COVID-19 Vaccine (3 - 2024-2 6 season) 2025 10/27/2020, 09/28/2020 Influenza Vaccine (#1) 2025 Hepatitis B Vaccines Aged Out No long er eligible based on patient's age to complete this topic RSV Ped < 20 months Aged Out No longe r eligible based on patient's age to complete this topic Care Teams Candy Counter Clerk Relationship Specialty Start Date End Date Akin Forrester MD [address] [id number] PCP - General Internal Medicine 12/30/18
--- OUTSIDE RECORDS SUMMARY | 2025-05-19 15:10 | XMS_ITS | Clinical Summary ---
Author Organization [facility] Address [address] [place] [address] Phone Care Team Providers Care Roping Tender Name Role Phone Akin Forrester MD Primary Care Provider + [phone] Allergies No known active allergies Medications Eliquis [...] 1 tablet (25 mg total) by mouth 1 (one) time [...] mouth 1 (one) time each day. Active pantoprazole (PROTONIX) 40 mg EC tablet Take 1 tablet (40 mg total) by mouth 1 (one) time each day. 04/24/20 25 Discontinue d(Discontin ued by another clinician) Active Problems Problem Noted Date Diagnosed Date Secondary malignant neoplasm of right lung (CMS/HCC V24, CMS/HCC V28) 07/17/2024 Hypertension 06/27/2021 Overview (08/25/2024): Last Assessment & Plan: 120/60 in office today, well-controlled. Continue metoprolol and amlodipine. Assessment & Plan (03/27/2025 3:25 PM EDT): Mildly elevated during today's exam with a reading of 140/60. He will continue his current dose of metoprolol and amlodipine. Educated on the importance of diet lifestyle to help further assist in reducing blood pressure. The patient was encouraged to follow low-salt low-fat diet, make purposeful strides towards weight loss, and engage in routine aerobic exercise as tolerated. Hyperlipidemia 06/27/2021 Overview (08/25/2024): Last Assessment & Plan: Last lipid panel from March 2023. Total cholesterol 127, HDL 48, LDL 62. Continue statin therapy. Paroxysmal atrial fibrillation ([facility] V24, [facility] V28) 12/13/2020 Overview (08/25/2024): Last Assessment & Plan: [...] He verbalizes understanding and agrees to continue. Assessment & Plan (03/27/2025 3:25 PM EDT): Patient does endorse perception of arrhythmia which increases throughout the day. He is uncertain whether or not this is true arrhythmia versus anxiety. He states compliance with his current dose of metoprolol. We did discuss updating a monitor to further evaluate for overall A-fib rate control however the patient would like to defer at this time. He will continue to be anticoagulated on full dose Eliquis as his weight is greater than 60 kg and his creatinine is less than 1.5. Educated on risks and benefits of continuing with anticoagulation including increased risk for hemorrhage and decreased risk for stroke. Encouraged to seek emergent medical attention should the patient sustain a fall involving a head strike. The patient understands these risks and agrees to continue. Orders: ECG 12 lead Transthoracic echocardiogram (TTE) complete with PRN contrast, bubble, strain, and 3D order panel; Future perflutren lipid microsphere (DEFINITY) 1.3 mL in sodium chloride 0.9% 8.7 mL injection Right bundle branch block 12/13/2020 Overview (08/25/2024): Last Assessment & Plan: I did review with him his ECG today does demonstrate the right bundle branch block which he has had in the past. Encounters Date Type Department Care Team Description 04/24/2025 2:19 PM EDT - 04/24/2025 11:59 PM EDT Hospital Encounter [facility] Radiation Oncology [address] [place] [phone] Maeve Hinton NP Secondary malignant neoplasm of right lung (CMS/HCC V24, CMS/HCC V28) (Primary Dx) Discharge Disposition: Home or Self Care 03/27/2025 2:40 PM EDT Office Visit [facility] [address] [place] [phone] Viri Jones NP Paroxysmal atrial fibrillation (CMS/HCC V24, CMS/HCC V28) (Primary Dx); Other fatigue; Primary hypertension 03/19/2025 2:14 PM EDT - 03/19/2025 11:59 PM EDT Hospital Encounter [facility] CT Scan [address] [place] [phone] Secondary malignant neoplasm of right lung (CMS/HCC V24, CMS/HCC V28) Discharge Disposition: Home or Self Care 03/16/2025 Telephone [facility] Radiation Oncology [address] [place] [phone] Kyung Marcial RN from Last 3 Months Immunizations Name Administration Dates Next Due Moderna SARS-CoV-2 COVID-19, mRNA, LNP-S, preservative free 10/27/2020,09/28/2020 Medical History Medical History Date Comments Anxiety DX:Anxiety Chronic kidney disease DX:Chroni c kidney disease COPD (chronic obstructive pu lmonary disease) ([facility] V24, [facility] V28) DX:COPD (chronic o bstructive pulmonary disease) ([facility]) GERD (gastroesophageal reflux disease) DX:GERD (gastroesophageal reflux disease) Benign prostatic hyperplasia DX: Benign prostatic hyperplasia Family History Medical History Relation Name Comments Other: pacemaker Brother Relation Name Status Comments Brother Father Mother Social History Tobacco Use Types Packs/Day Years Used Date Smoking Tobacco: Some Days Cigarettes Smokeless Tobacco: Never Tobacco Cessation:Ready to Q uit: Not Asked; Counseling Given: Not Answered Comments:Couple times a day. Alcohol Use Standard Drinks/Week Comments Yes 0 (1 standard drink = 0.6 oz pur e alcohol) vodka at dinner Sex and Gender Information Value Date Recorded Sex Assigned at Male 03/18/2025 8:36 AM EDT Legal Sex Male 11:29 AM EST Gender Identity Male 03/18/2025 8:36 AM EDT Sexual Orientation Not on file Obstetrics History Last Filed Vital Signs Vital Sign Reading Time Taken Comments Blood Pressure 114/78 04/24/2025 2:21 PM EDT Pulse 60 04/24/2025 2:21 PM EDT Temperature 36.2 C (97.2 F) 04/24/2025 2:21 PM EDT Respiratory Rate 16 04/24/2025 2:21 PM EDT Oxygen Saturation 96% 04/24/2025 2:21 PM EDT Inhaled Oxygen Concentration - - Weight 64.2 kg (141 lb 9.6 oz) 04/24/2025 2:21 P M EDT Height 182.9 cm (6') 04/24/2025 2:21 PM EDT Body Mass Index 19.2 04/24/2025 2:21 PM EDT Plan of Treatment Upcoming Encounters Date Type Department Care Team (Late st Contact Info) Description 11/05/2025 1:30 PM EST Office Visit [facility] Hematology Oncology [address] [place] [phone] Lizzy Gil, [address] [place] [address] 11/05/2025 2:00 PM EST Appointment [facility] Radiation Oncology [address] [place] [phone] Maeve Hinton, EILEEN [address] [place] [address] Health Maintenance Due Date Last Done Comments DTaP,Tdap,and Td Vaccines (1 - Tdap) 1959 RSV Immunization Adult Patients (1 - 1-dose 75+ series) 2016 Zoster Vaccines (2 of 2) 05/05/2021 03/10/2021 Falls Risk Assessment 08/17/2022 Medicare Annual Wellness Visit 08/17/2022 Social Influencers of Health Screening 08/17/2022 Depression Screening 09/10/2024 COVID-19 Vaccine ( - season) 2025 07/28/2022, 07/25/2021, 10/27/2020, Additional history exists Influenza Vaccine (#1) 2025 , 06/04/2023, 05/26/2022, Additional history exists Hypertension/CHF/CAD Annual BMP Blood Test 05/05/2026 05/05/2025, 04/10/2025, 07/24/2024 Cholesterol Screening (Lipid Panel) 04/10/2030 04/10/2025, 12/10/2023 Pneumococcal Vaccine: 50+ Years Completed 10/09/2023, 07/23/2015 HIB Vaccines Aged Out No longer eligi [...] age to complete this topic Meningococcal B Vaccine Aged Out No l onger eligible based on patient's age to complete this topic RSV Immunization Patients Under 20 months Aged Out No longer eligible based on patient's age to complete this topic Varicella Vaccines Aged Out No longer eligible based on patient's age to complete this topic Procedures Procedure Name Priority Date/Time Associated Diagnosis Comments IMMUNOGLOBULIN D IGD Routine 05/05/2025 3:56 PM EDT Abnormal protein electrophoresis WI PROTEIN ELECTROPHORETIC FRACTIONATION & QUANTITATION SERUM Routine 05/05/2025 3:56 PM EDT Abnormal protein electrophoresis WI IMMUNOFIXATION ELECTROPHORESIS SERUM Routine 05/05/2025 3:56 PM EDT Abnormal protein electrophoresis IMMUNOGLOBULINS IGG, IGA, IGM Routine 05/05/2025 3:56 PM EDT Abnormal protein electrophoresis PROTEIN, TOTAL Routine 05/05/2025 3:56 PM EDT Abnormal protein electrophoresis PROTEIN ELECTROPHORESIS, SERUM Routine 05/05/2025 3:56 PM EDT Abnormal protein electrophoresis BASIC METABOLIC PANEL Routine 05/05/2025 3:56 PM EDT Abnormal protein electrophoresis IMMUNOFIXATION ELECTROPHORESIS Routine 05/05/2025 3:56 PM EDT Abnormal protein electrophoresis KAPPA-LAMBDA QUANTITATIVE FREE LIGHT CHAINS Routine 05/05/2025 3:56 PM EDT Abnormal protein electrophoresis IMMUNOGLOBULIN IGG Routine 05/05/2025 3: 56 PM EDT Abnormal protein electrophoresis IMMUNOGLOBULIN IGM Routine 05/05/2025 3: 56 PM EDT Abnormal protein electrophoresis WI PROTEIN ELECTROPHORETIC FRACTIONATION & QUANTITATION SERUM Routine 04/10/2025 2:51 PM EDT Essential hypertension, malignant Disorder of lipoprotein and lipid metabolism Atrial fibrillation (CMS/HCC V24, CMS/HCC V28) Esophageal reflux COPD (chronic obstructive pulmonary disease) (CMS/HCC V24, CMS/HCC V28) Adenocarcinoma, renal cell (CMS/HCC V24, CMS/HCC V28) Lung cancer (CMS/HCC V24, CMS/HCC V28) WI IMMUNOFIXATION ELECTROPHORESIS SERUM Routine 04/10/2025 2:51 PM EDT Essential hypertension, malignant Disorder of lipoprotein and lipid metabolism Atrial fibrillation (CMS/HCC V24, CMS/HCC V28) Esophageal reflux COPD (chronic obstructive pulmonary disease) (CMS/HCC V24, CMS/HCC V28) Adenocarcinoma, renal cell (CMS/HCC V24, CMS/HCC V28) Lung cancer (CMS/HCC V24, CMS/HCC V28) IMMUNOGLOBULINS IGG, IGA, IGM Routine 04/10/2025 2:51 PM EDT Essential hypertension, malignant Disorder of lipoprotein and lipid metabolism Atrial fibrillation (CMS/HCC V24, CMS/HCC V28) Esophageal reflux COPD (chronic obstructive pulmonary disease) (CMS/HCC V24, CMS/HCC V28) Adenocarcinoma, renal cell (CMS/HCC V24, CMS/HCC V28) Lung cancer (CMS/HCC V24, CMS/HCC V28) PROTEIN, TOTAL Routine 04/10/2025 2:51 PM EDT Essential hypertension, malignant Disorder of lipoprotein and lipid metabolism Atrial fibrillation (CMS/HCC V24, CMS/HCC V28) Esophageal reflux COPD (chronic obstructive pulmonary disease) (CMS/HCC V24, CMS/HCC V28) Adenocarcinoma, renal cell (CMS/HCC V24, CMS/HCC V28) Lung cancer (CMS/HCC V24, CMS/HCC V28) CBC WITH AUTO DIFFERENTIAL Routine 04/10/2025 2:51 PM EDT Essential hypertension, malignant Disorder of lipoprotein and lipid metabolism Atrial fibrillation (CMS/HCC V24, CMS/HCC V28) Esophageal reflux COPD (chronic obstructive pulmonary disease) (CMS/HCC V24, CMS/HCC V28) Adenocarcinoma, renal cell (CMS/HCC V24, CMS/HCC V28) Lung cancer (CMS/HCC V24, CMS/HCC V28) PROTEIN AND CREATININE WITH RATIO, URINE Routine 04/10/2025 2:51 PM EDT Essential hypertension, malignant HEPATIC FUNCTION PANEL Routine 2:51 PM EDT Essential hypertension, malignant Disorder of lipoprotein and lipid metabolism Atrial fibrillation (CMS/HCC V24, CMS/HCC V28) Esophageal reflux COPD (chronic obstructive pulmonary disease) (CMS/HCC V24, CMS/HCC V28) Adenocarcinoma, renal cell (CMS/HCC V24, CMS/HCC V28) Lung cancer (CMS/HCC V24, CMS/HCC V28) LIPID PANEL WITH REFLEX TO DIRECT LDL Routine 04/10/2025 2:51 PM EDT Essential hypertension, malignant Disorder of lipoprotein and lipid metabolism Atrial fibrillation (CMS/HCC V24, CMS/HCC V28) Esophageal reflux COPD (chronic obstructive pulmonary disease) (CMS/HCC V24, CMS/HCC V28) Adenocarcinoma, renal cell (CMS/HCC V24, CMS/HCC V28) Lung cancer (CMS/HCC V24, CMS/HCC V28) BASIC METABOLIC PANEL Routine 04/10/2025 2:51 PM EDT Essential hypertension, malignant Disorder of lipoprotein and lipid metabolism Atrial fibrillation (CMS/HCC V24, CMS/HCC V28) Esophageal reflux COPD (chronic obstructive pulmonary disease) (CMS/HCC V24, CMS/HCC V28) Adenocarcinoma, renal cell (CMS/HCC V24, CMS/HCC V28) Lung cancer (CMS/HCC V24, CMS/HCC V28) CBC AND DIFFERENTIAL Routine 04/10/2025 2:51 PM EDT Essential hypertension, malignant Disorder of lipoprotein and lipid metabolism Atrial fibrillation (CMS/HCC V24, CMS/HCC V28) Esophageal reflux COPD (chronic obstructive pulmonary disease) (CMS/HCC V24, CMS/HCC V28) Adenocarcinoma, renal cell (CMS/HCC V24, CMS/HCC V28) Lung cancer (CMS/HCC V24, CMS/HCC V28) PROTEIN ELECTROPHORESIS, SERUM Routine 04/10/2025 2:51 PM EDT Essential hypertension, malignant Disorder of lipoprotein and lipid metabolism Atrial fibrillation (CMS/HCC V24, CMS/HCC V28) Esophageal reflux COPD (chronic obstructive pulmonary disease) (CMS/HCC V24, CMS/HCC V28) Adenocarcinoma, renal cell (CMS/HCC V24, CMS/HCC V28) Lung cancer (CMS/HCC V24, CMS/HCC V28) IMMUNOFIXATION ELECTROPHORESIS Routine 04/10/2025 2:51 PM EDT Essential hypertension, malignant Disorder of lipoprotein and lipid metabolism Atrial fibrillation (CMS/HCC V24, CMS/HCC V28) Esophageal reflux COPD (chronic obstructive pulmonary disease) (CMS/HCC V24, CMS/HCC V28) Adenocarcinoma, renal cell (CMS/HCC V24, CMS/HCC V28) Lung cancer (CMS/HCC V24, CMS/HCC V28) MICROALBUMIN CREATININE URINE RATIO Routine 04/10/2025 2:51 PM EDT Essential hypertension, malignant Disorder of lipoprotein and lipid metabolism Atrial fibrillation (CMS/HCC V24, CMS/HCC V28) Esophageal reflux COPD (chronic obstructive pulmonary disease) (CMS/HCC V24, CMS/HCC V28) Adenocarcinoma, renal cell (CMS/HCC V24, CMS/HCC V28) Lung cancer (CMS/HCC V24, CMS/HCC V28) ECG 12-LEAD Routine 03/27/2025 3:25 PM EDT Paroxysmal atrial fibrillation (CMS/HCC V24, CMS/HCC V28) CT CHEST WO CONTRAST Routine 03/19/2025 2:29 PM EDT Secondary malignant neoplasm of right lung (CMS/HCC V24, CMS/HCC V28) from Last 3 Months Results * Pathologist Review Immunofixation (05/05/2025 3:56 PM EDT) Only the most recent of2 resultswithin the time period is included. Pathologist Interpretation 05/07/2025 3:53 PM EDT [facility] Blood Venous blood specimen / Unknown Venipuncture / Unknown 05/05/2025 3:56 PM EDT 05/05/2025 4:14 PM EDT Akin Forrester MD LAB BLOOD ORDERABLES Final R esult [facility] [address] [place] [address], [place] [phone] * PATHOLOGIST REVIEW PROTEIN ELECTROPHORESIS (05/05/2025 3:56 PM EDT) Only the most recent of2 resultswithin the time period is included. Pathologist Interpretation 05/08/2025 1:34 PM EDT [facility] Blood Venous blood specimen / Unknown Venipuncture / Unknown 05/05/2025 3:56 PM EDT 05/05/2025 4:14 PM EDT us Akin Forrester MD LAB BLOOD ORDERABLES Final R esult Performing Organization Address [facility] de Phone Number [facility] [address] [place] [address], [place] [phone] * (ABNORMAL) Dawn-lambda free light chains, quantitative (05/05/2025 3:56 PM EDT) Dawn Free Light Chain 3.98(H) 0.33 - 1.94 mg/dL 05/08/2025 1:34 PM EDT [facility] Lambda Free Light Chain 2.59 0.57 - 2.63 mg/dL 05/08/2025 1:34 PM EDT [facility] Dawn/Lambda FLC Ratio 1.54 0.26 - 1.65 05/08/2025 1:34 PM EDT [facility] Comment: Test performed at [facility], [address] , [place] [id number] Lili Rojas MD, PhD - Stamping Die Try Out Worker Blood Venous blood specimen / Unknown Venipuncture / Unknown 05/05/2025 3:56 PM EDT 05/05/2025 4:14 PM EDT us Akin Forrester MD LAB BLOOD ORDERABLES Final R esult Performing Organization Address [facility]/ZIP Co de Phone Number [facility] [address] [place] [address] * Immunoglobulin IgD (05/05/2025 3:56 PM EDT) [facility] IgD, Serum <7 <179 mg/L 05/11/2025 12:18 AM EDT [facility] Comment: Test Performed by [employer], [employer] [facility], [address] [place] [address] Jose Luis Gandhi M.D., Ph.D., Director of Laboratories , [place] [id number] Blood Venous blood specimen / Unknown Venipuncture / Unknown 05/05/2025 3:56 PM EDT 05/05/2025 4:14 PM EDT us Akin Forrester MD LAB BLOOD ORDERABLES Final R esult Performing Organization Address [facility] Co de Phone Number [facility] [address] [place] [address] * Immunofixation electrophoresis serum (05/05/2025 3:56 PM EDT) Only the most recent of2 resultswithin the time period is included. [facility] Immunofixation Result, Serum IgG Dawn monoclonal immunoglobulins detected. LAB CHEMISTRY METHOD 05/07/2025 3:53 PM EDT [facility] Blood Venous blood specimen / Unknown Venipuncture / Unknown 05/05/2025 3:56 PM EDT 05/05/2025 4:14 PM EDT us Akin Forrester MD LAB BLOOD ORDERABLES Final R esult Performing Organization Address City/[facility]/ZIP Co de Phone Number [facility] [address] [place] [address], [place] [phone] * Immunoglobulins IgG, IgA, IgM (05/05/2025 3:56 PM EDT) Only the most recent of2 resultswithin the time period is included. Pathologist [facility] Total IgG 1,470 549 - 1,584 mg/dL LAB CHEMISTRY METHOD 05/07/2025 10:01 AM EDT [facility] IgA 174 61 - 348 mg/dL LAB CHEMISTRY METHOD 05/07/2025 10:01 AM EDT [facility] IgM 96 23 - 259 mg/dL LAB CHEMISTRY METHOD 05/07/2025 10:01 AM EDT [facility] Blood Venous blood specimen / Unknown Venipuncture / Unknown 05/05/2025 3:56 PM EDT 05/05/2025 4:14 PM EDT Akin Forrester MD LAB BLOOD ORDERABLES Final R esult [facility] [address] [place] [address], * Protein electrophoresis, serum (05/05/2025 3:56 PM EDT) Only the most recent of2 resultswithin the time period is included. Pathologist [facility] Total Protein 7.0 6.0 - 8.0 g/dL LAB CHEMISTRY METHOD 05/08/2025 1:34 PM [facility] Albumin, Serum 3.5 2.9 - 4.1 g/dL LAB CHEMISTRY METHOD 05/08/2025 1:34 PM EDT [facility] Alpha 1 Globulin (g/dL) 0.2 0.1 - 0.5 g/dL LAB CHEMISTRY METHOD 05/08/2025 1:34 PM T [facility] Alpha 2 Globulin (g/dL) 0.9 0.7 - 1.5 g/dL LAB CHEMISTRY METHOD 05/08/2025 1:34 PM T [facility] Beta (g/dL) 0.8 0.7 - 1.5 g/dL LAB CHEMISTRY METHOD 05/08/2025 1:34 PM EDT [facility] Gamma Globulin (g/dL) 1.5 0.7 - 1.9 g/dL LAB CHEMISTRY METHOD 05/08/2025 1:34 PM EDT [facility] PARAPROTEIN LAB CHEMISTRY METHOD 05/08/2025 1:34 PM EDT [facility] Comment:IMMEASURABLE SPEP Interpretation Monoclonal gammopathy. Abnormal pattern with immeasurable M-spike of gamma globulin mobility. Serum Immunofixation performed on this specimen demonstrated IgG Dawn monoclonal protein. LAB CHEMISTRY METHOD 05/08/2025 1:34 PM EDT [facility] Blood Venous blood specimen / Unknown Venipuncture / Unknown 05/05/2025 3:56 PM EDT 05/05/2025 4:14 PM EDT us Akin Forrester MD LAB BLOOD ORDERABLES Final R esult Performing Organization Address [facility] Co de Phone Number [facility] [address] [place] [address], [place] [phone] * Protein, total (05/05/2025 3:56 PM EDT) Only the most recent of2 resultswithin the time period is included. [facility] Total Protein 7.1 6.0 - 8.0 g/dL LAB CHEMISTRY METHOD 05/05/2025 9:15 PM EDT [facility] Blood Venous blood specimen / Unknown Venipuncture / Unknown 05/05/2025 3:56 PM EDT 05/05/2025 4:14 PM EDT us Akin Forrester MD LAB BLOOD ORDERABLES Final R esult Performing Organization Address [facility]/ZIP Co de Phone Number [facility] [address] [place] [address], [place] [phone] * Immunoglobulin IgM (05/05/2025 3:56 PM EDT) Pathologist [facility] IgM 93 23 - 259 mg/dL LAB CHEMISTRY METHOD 05/05/2025 5:46 PM EDT [facility] Blood Venous blood specimen / Unknown Venipuncture / Unknown 05/05/2025 3:56 PM EDT 05/05/2025 4:14 PM EDT us Akin Forrester MD LAB BLOOD ORDERABLES Final R esult [facility] [address] [place] [address], [place] [phone] * Immunoglobulin IgG (05/05/2025 3:56 PM EDT) Pathologist [facility] Total IgG 1,440 549 - 1,584 mg/dL LAB CHEMISTRY METHOD 05/05/2025 5:46 PM EDT [facility] Blood Venous blood specimen / Unknown Venipuncture / Unknown 05/05/2025 3:56 PM EDT 05/05/2025 4:14 PM EDT us Akin Forrester MD LAB BLOOD ORDERABLES Final R esult Performing Organization Address City/[facility]/ZIP Co de Phone Number [facility] [address] [place] [address], [place] [phone] * (ABNORMAL) Basic metabolic panel (05/05/2025 3:56 PM EDT) Only the most recent of2 resultswithin the time period is included. Pathologist [facility] Sodium 136 133 - 145 mmol/L LAB CHEMISTRY METHOD 05/05/2025 5:35 PM EDT [facility] Potassium 4.2 3.5 - 5.5 mmol/L LAB CHEMISTRY METHOD 05/05/2025 5:35 PM EDT [facility] Chloride 103 96 - 110 mmol/L LAB CHEMISTRY METHOD 05/05/2025 5:35 PM EDT [facility] CO2 27 21 - 32 mmol/L LAB CHEMISTRY METHOD 05/05/2025 5:35 PM EDT [facility] Anion Gap 6 3 - 11 LAB CHEMISTRY METHOD 05/05/2025 5:35 PM EDT [facility] Glucose 82 70 - 100 mg/dL LAB CHEMISTRY METHOD 05/05/2025 5:35 PM EDT [facility] BUN 23 5 - 25 mg/dL LAB CHEMISTRY METHOD 05/05/2025 5:35 PM EDT [facility] Creatinine 1.60(H) 0.70 - 1.30 mg/dL LAB CHEMISTRY METHOD 05/05/2025 5:35 PM EDT [facility] eGFR 42(L) >=60 mL/min/1. 73m2 LAB CHEMISTRY METHOD 05/05/2025 5:35 PM EDT [facility] Comment:Calculation based on the Chronic Kidney Disease Epidemiology Collaboration (CKD-EPI) equation refit without adjustment for race. BUN/Creatinine Ratio 14.4 LAB CHEMISTRY METHOD 05/05/2025 5:35 PM EDT [facility] Calcium 9.3 8.5 - 10.5 mg/dL LAB CHEMISTRY METHOD 05/05/2025 5:35 PM T [facility] Blood Venous blood specimen / Unknown Venipuncture / Unknown 05/05/2025 3:56 PM EDT 05/05/2025 4:14 PM EDT Akin Forrester MD LAB BLOOD ORDERABLES Final R esult [facility] [address] [place] [address], * Lipid panel with reflex to direct LDL (04/10/2025 2:51 PM EDT) Cholesterol 122 0 - 200 mg/dL LAB CHEMISTRY METHOD 04/10/2025 3:54 PM EDT [facility] Triglycerides 90 0 - 150 mg/dL LAB CHEMISTRY METHOD 04/10/2025 3:54 PM EDT [facility] HDL 49 >=40 mg/dL LAB CHEMISTRY METHOD 04/10/2025 3:54 PM EDT [facility] LDL Calculated 55 0 - 100 mg/dL LAB CHEMISTRY METHOD 04/10/2025 3:54 PM EDT [facility] VLDL Cholesterol Jimbo 18 mg/dL LAB CHEMISTRY METHOD 04/10/2025 3:54 PM EDT [facility] Non HDL Chol. (LDL+VLDL) 73 <145 mg/dL LAB CHEMISTRY METHOD 04/10/2025 3:54 PM EDT [facility] Chol/HDL Ratio 2.5 0.0 - 4.4 LAB CHEMISTRY METHOD 04/10/2025 3:54 PM EDT [facility] Blood Venous blood specimen / Unknown Venipuncture / Unknown 04/10/2025 2:51 PM EDT 04/10/2025 3:00 PM EDT us Akin Forrester MD LAB BLOOD ORDERABLES Final R esult [facility] [address] [place] [address], [place] [phone] * (ABNORMAL) CBC auto differential (04/10/2025 2:51 PM EDT) WBC 7.1 4.8 - 10.8 K/mcL LAB HEMETOLOGY METHOD 04/10/2025 3:15 PM EDT [facility] RBC 4.50 4.50 - 5.50 M/mcL LAB HEMETOLOGY METHOD 04/10/2025 3:15 PM EDT [facility] Hemoglobin 14.8 13.5 - 17.5 g/dL LAB HEMETOLOGY METHOD 04/10/2025 3:15 PM EDT [facility] Hematocrit 44.6 42.0 - 54.0 % LAB HEMETOLOGY METHOD 04/10/2025 3:15 PM EDT [facility] MCV 98.7(H) 79.0 - 98.0 FL LAB HEMETOLOGY METHOD 04/10/2025 3:15 PM EDT [facility] MCH 32.7(H) 27.0 - 32.0 pcg LAB HEMETOLOGY METHOD 04/10/2025 3:15 PM EDT [facility] MCHC 33.2 32.0 - 37.0 g/dL LAB HEMETOLOGY METHOD 04/10/2025 3:15 PM EDT [facility] RDW 13.4 11.0 - 15.0 % LAB HEMETOLOGY METHOD 04/10/2025 3:15 PM EDT [facility] Platelets 178 130 - 400 K/mcL LAB [facility] M[facility] 10.6 7.0 - 11.0 [place] LAB HEMETOLOGY METHOD 04/10/2025 3:15 PM EDT [facility] NRBC 0.0 <1.0 % LAB [facility]OLOGY [facility] Absolute 0.00 <0.10 K/mcL LAB HEMETOLOGY METHOD 04/10[facility]25 [facility] Neutrophils Relative 66.4 % LAB HEMETOLOGY METHOD 04/10/2025 3:15 PM EDT [facility] Lymphocytes Relative 16.5 % LAB HEMETOLOGY METHOD 04/10/2025 3:15 PM EDT [facility] Monocytes Relative 12.7 % LAB HEMETOLOGY METHOD 04/10/2025 3:15 PM EDT [facility] Eosinophils Relative 3.5 % LAB HEMETOLOGY METHOD 04/10/2025 3:15 PM EDT [facility] Basophils Relative 0.6 % LAB HEMETOLOGY METHOD 04/10/2025 3:15 PM EDT [facility] Immature Granulocytes Relative 0.3 % LAB HEMETOLOGY METHOD 04/10/2025 3:15 PM EDT [facility] Neutrophils Absolute 4.70 1.50 - 7.00 K/mcL LAB HEMETOLOGY METHOD 04/10/2025 3:15 PM EDT [facility] Lymphocytes Absolute 1.17 1.00 - 5.00 K/mcL LAB HEMETOLOGY METHOD 04/10/2025 3:15 PM EDT [facility] Monocytes Absolute 0.90 0.20 - 1.00 K/mcL LAB HEMETOLOGY METHOD 04/10/2025 3:15 PM EDT [facility] Eosinophils Absolute 0.25 0.00 - 0.50 K/mcL LAB HEMETOLOGY METHOD 04/10/2025 3:15 PM EDT [facility] Basophils Absolute 0.04 0.00 - 0.20 K/mcL LAB HEMETOLOGY METHOD 04/10/2025 3:15 PM EDT [facility] Immature Granulocytes Absolute 0.02 0.00 - 0.03 K/mcL LAB HEMETOLOGY METHOD 04/10/2025 3:15 PM EDT [facility] Blood Venous blood specimen / Unknown Venipuncture / Unknown 04/10/2025 2:51 PM EDT 04/10/2025 3:01 PM EDT us Akin Forrester MD LAB BLOOD ORDERABLES Final R esult [facility] [address] [place] [address], * Protein and creatinine with ratio, urine (04/10/2025 2:51 PM EDT) Protein, Urine <5 mg/dL LAB CHEMISTRY METHOD 04/10/2025 4:05 PM EDT [facility] Prot/Creat, Ur <0.19 <=0.20 mg/mg creat LAB CHEMISTRY METHOD 04/10/2025 4:05 PM EDT [facility] Comment:Unable to calculate due to a result outside the reportable range. Creatinine, Urine 26.0 mg/dL LAB CHEMISTRY METHOD 04/10/2025 4:05 PM EDT [facility] Urine Urine specimen obtained by clean catch procedure / Unknown Non-blood Collection / Unknown 04/10/2025 2:51 PM EDT 04/10/2025 3:00 PM EDT Shawn Ordaz MD LAB URINE ORDERABLES Final Resul t Performing Organization Address City/[facility]/ZIP Co de Phone Number [facility] [address] [place] [address], * Microalbumin creatinine urine ratio (04/10/2025 2:51 PM EDT) Creatinine, Urine 26.0 mg/dL LAB CHEMISTRY METHOD 04/10/2025 4:05 PM EDT [facility] Microalb, Ur <5.0 0.0 - 29.0 mg/L LAB CHEMISTRY METHOD 04/10/2025 4:05 PM EDT [facility] Microalb/Creat Ratio <19 <30 mg/g creat LAB CHEMISTRY METHOD 04/10/2025 4:05 PM EDT [facility] Urine Urine specimen obtained by clean catch procedure / Unknown Non-blood Collection / Unknown 04/10/2025 2:51 PM EDT 04/10/2025 3:00 PM EDT Akin Forrester MD LAB URINE ORDERABLES Final R esult Performing Organization Address [facility]/ZIP Co de Phone Number [facility] [address] [place] [address], [place] [phone] * Hepatic function panel (04/10/2025 2:51 PM EDT) Total Protein 7.3 6.0 - 8.0 g/dL LAB CHEMISTRY METHOD 04/10/2025 3:54 PM EDT [facility] Albumin 3.9 3.2 - 5.0 g/dL LAB CHEMISTRY METHOD 04/10/2025 3:54 PM EDT [facility] Total Bilirubin 0.9 0.0 - 1.4 mg/dL LAB CHEMISTRY METHOD 04/10/2025 3:54 PM EDT [facility] Bilirubin, Direct 0.3 0.0 - 0.3 mg/dL LAB CHEMISTRY METHOD 04/10/2025 3:54 PM EDT [facility] Bilirubin, Indirect 0.6 0.0 - 1.1 mg/dL LAB CHEMISTRY METHOD 04/10/2025 3:54 PM EDT [facility] ALT (SGPT) 16 10 - 60 unit/L LAB CHEMISTRY METHOD 04/10/2025 3:54 PM EDT [facility] AST (SGOT) 30 10 - 42 unit/L LAB CHEMISTRY METHOD 04/10/2025 3:54 PM EDT [facility] Alkaline Phosphatase 68 42 - 121 unit/L LAB CHEMISTRY METHOD 04/10/2025 3:54 PM EDT [facility] Blood Venous blood specimen / Unknown Venipuncture / Unknown 04/10/2025 2:51 PM EDT 04/10/2025 3:00 PM EDT us Akin Forrester MD LAB BLOOD ORDERABLES Final R esult [facility] [address] [place] [address], * ECG 12 lead (03/27/2025 3:25 PM EDT) Ventricular Rate ECG 62 BPM GEMUSE Atrial Rate 62 BPM GEMUSE P-R Interval 160 ms GEMUSE QRS Duration 126 ms GEMUSE Q-T Interval 434 ms GEMUSE QTc 440 ms GEMUSE P Wave Merkel 82 degrees GEMUSE R Merkel 86 degrees GEMUSE T Merkel 77 degrees GEMUSE ECG Interpretation Sinus rhythm with marked sinus arrhythmia Right bundle branch block Abnormal ECG When compared with ECG of 13-JAN-2019 09:03, Premature ventricular complexes are no longer Present Right bundle branch block has replaced Incomplete right bundle branch block Confirmed by MD Magaña [facility] ([id number]) on 03/31/2025 8:36:37 AM GEMUSE 03/27/2025 2:38 PM EDT 03/31/2025 8:36 AM EDT us Viri Jones INSTALL AND REPAIR TECHNICIAN ECG ORDERABLES Edited Result - Final GEMUSE * CT Chest wo Contrast (03/19/2025 2:29 PM EDT) Anatomical Region Laterality Modality Body Computed Tomogra phy 03/20/2025 7:48 AM EDT Addenda Addendum by Kelton Escalante MD on 03/20/2025 9:28 AM EDT Addendum: Incidental finding of loose bodies adjacent to the coracoid process on each side was inadvertently not included in the original report -------- ADDENDUM -------- Dictated By: Kelton Escalante Dictated Date: 03/20/2025 09:27 ET Assigned Physician: Kelton Escalante Reviewed and Electronically Signed By: Kelton Escalante Signed Date: 03/20/2025 09:28 ET Workstation ID: [id number] Transcribed By: Self Edit Transcribed Date: 03/20/2025 09:27 ET Impressions 03/20/2025 8:14 AM EDT No evidence of residual recurrent disease at the site of prior wedge resection left upper lobe. Stable changes in the superior segment left lower lobe possibly related to postradiation change. Severe underlying chronic lung disease. No new suspicious findings or suspicious interval change. -------- FINAL REPORT -------- Dictated By: Kelton Escalante Dictated Date: 03/20/2025 07:48 ET Assigned Physician: Kelton Escalante Reviewed and Electronically Signed By: Kelton Escalante Signed Date: 03/20/2025 08:14 ET Workstation ID: [id number] Transcribed By: Self Edit Transcribed Date: 03/20/2025 07:48 ET Narrative 03/20/2025 8:14 AM EDT EXAMINATION: CT CHEST WITHOUT CONTRAST CLINICAL INFORMATION: [place] metastatic urothelial carcinoma involving the lung. Post left upper lobe resection 2016. 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 Examination of the chest. Examination of the chest without IV contrast. Reformatting in the coronal and sagittal planes. DLP: 292 mGy-cm Dose optimization was performed including the use of low-dose iterative reconstruction technique with automatic exposure control based on patient size. Type of contrast: None Volume of IV contrast: None Volume of contrast discarded: 0 mL FINDINGS: LUNG: No suspicious abnormality of the trachea or mainstem bronchi. There is linear suture in the anterior left upper lung consistent with prior wedge resection. There is no evidence of residual or recurrent disease at the suture line. There is poorly defined parenchymal abnormality in the posteromedial superior segment left lower lobe with some retraction and distortion. This presumably correlates to the site of prior SBRT. This area is difficult to quantify. There is a somewhat focal opacity in the central area of abnormal attenuation 03/19/25-1.0 cm (3/109) 07/28/24-0.9 cm (4/109) 05/02/22-1.0 cm (4/108) 08/21/19-0.8 cm (3/56)-pretreatment Subjectively, no significant change when compared to previous. There is irregular pleural associated opacity in the anterior right apex which is difficult to quantify 03/19/25-0.8 cm (3/46) 07/28/24-0.8 cm (4/41) 05/02/22-not measurable There are micronodules measuring less than 0.4 cm which appear similar (insurance sales representative example lateral anterior left lower lobe 3/177; lateral peripheral right lower lobe 3/208). Severe underlying centrilobular emphysema. There are fine reticular opacities in the azygos esophageal recess of the right lower lobe and adjacent to the right hemidiaphragm and in the posterolateral right lower lobe without honeycomb formation. MEDIASTINUM: There are no enlarged mediastinal or hilar lymph nodes. No suspicious abnormality of the esophagus CARDIAC: The heart is not enlarged. No pericardial fluid or thickening CORONARY CALCIFICATION: There are marked coronary calcifications. VASCULAR: There is no thoracic aortic aneurysm. The main pulmonary artery is normal caliber PLEURA: There is extensive fibrocalcific thickening in the apices similar to previous. Pleural associated broad-based soft tissue density posteromedial right mid chest (3/165) is not significant changed since August 2019. There is no significant pleural fluid or pneumothorax. AXILLA/CHEST WALL: There are no enlarged axillary lymph nodes. No chest wall mass demonstrated VISUALIZED UPPER ABDOMEN: No suspicious abnormality on limited assessment of the visualized upper abdomen. Suspect prior left nephrectomy. No change in the visualized portions of the left adrenal gland. Partially included probable cyst lateral upper right kidney MUSCULOSKELETAL: No new suspicious focal bony lesion. Unchanged sclerosis involving the lamina and spinous process in the region of T7. Procedure Note Kelton Escalante MD - 03/20/2025 EXAMINATION: CT CHEST WITHOUT CONTRAST CLINICAL INFORMATION: [place] metastatic urothelial carcinoma involving the lung. Post left upperlobe resection 2016. Previous report indicates SBRT left lower lobemetastasis 2019 COMPARISON: Portions of previous CT 07/28/24 TECHNIQUE: Multidetector CT. Examination of the chest. Examination of the chest without IV contrast. Reformatting in the coronal and sagittal planes. DLP: 292 mGy-cm Dose optimization was performed including the use of low-dose iterativereconstruction technique with automatic exposure control based on patientsize. Type of contrast: None Volume of IV contrast: None Volume of contrast discarded: 0 mL FINDINGS: LUNG: No suspicious abnormality of the trachea or mainstem bronchi. There is linear suture in the anterior left upper lung consistent withprior wedge resection. There is no evidence of residual or recurrentdisease at the suture line. There is poorly defined parenchymal abnormality in the posteromedialsuperior segment left lower lobe with some retraction and distortion. Thispresumably correlates to the site of prior SBRT. This area is difficult toquantify. There is a somewhat focal opacity in the central area of abnormalattenuation 03/19/25-1.0 cm (3/109) 07/28/24-0.9 cm (4/109) 05/02/22-1.0 cm (4/108) 08/21/19-0.8 cm (3/56)-pretreatment Subjectively, no significant change when compared to previous. There is irregular pleural associated opacity in the anterior right apexwhich is difficult to quantify 03/19/25-0.8 cm (3/46) 07/28/24-0.8 cm (4/41) 05/02/22-not measurable There are micronodules measuring less than 0.4 cm which appear similar(insurance sales representative example lateral anterior left lower lobe 3/177; lateralperipheral right lower lobe 3/208). Severe underlying centrilobular emphysema. There are fine reticular opacities in the azygos esophageal recess of theright lower lobe and adjacent to the right hemidiaphragm and in theposterolateral right lower lobe without honeycomb formation. MEDIASTINUM: There are no enlarged mediastinal or hilar lymph nodes. Nosuspicious abnormality of the esophagus CARDIAC: The heart is not enlarged. No pericardial fluid or thickening CORONARY CALCIFICATION: There are marked coronary calcifications. VASCULAR: There is no thoracic aortic aneurysm. The main pulmonary arteryis normal caliber PLEURA: There is extensive fibrocalcific thickening in the apices similarto previous. Pleural associated broad-based soft tissue density posteromedial right midchest (3/165) is not significant changed since August 2019. There is no significant pleural fluid or pneumothorax. AXILLA/CHEST WALL: There are no enlarged axillary lymph nodes. No chestwall mass demonstrated VISUALIZED UPPER ABDOMEN: No suspicious abnormality on limited assessmentof the visualized upper abdomen. Suspect prior left nephrectomy. No changein the visualized portions of the left adrenal gland. Partially included probable cyst lateral upper right kidney MUSCULOSKELETAL: No new suspicious focal bony lesion. Unchanged sclerosisinvolving the lamina and spinous process in the region of T7. IMPRESSION: No evidence of residual recurrent disease at the site of prior wedgeresection left upper lobe. Stable changes in the superior segment left lower lobe possibly related topostradiation change. Severe underlying chronic lung disease. No new suspicious findings or suspicious interval change. -------- FINAL REPORT -------- Dictated By: Kelton Escalante Dictated Date: 03/20/2025 07:48 ET Assigned Physician: Kelton Escalante Reviewed and Electronically Signed By: Kelton Escalante Signed Date: 03/20/2025 08:14 ET Workstation ID: [id number] Transcribed By: Self Edit Transcribed Date: 03/20/2025 07:48 ET Maeve Hinton INSTALL AND REPAIR TECHNICIAN IMG CT PROCEDURES Jhonny jero Result - Final from Last 3 Months Insurance MEDICARE [facility] Care Teams Roping Tender Relationship Specialty Start Date End Date Akin Forrester MD [address] [place] [phone] PCP - General Internal Medicine 02/05/18
--- OUTSIDE RECORDS SUMMARY | 2025-05-19 15:10 | XMS_ITS | Patient Health Record ---
Author Organization [facility] Address [address], [place] [id number] Care Team Providers Care Trench Pipe Layer Helper Name Role Phone ARIELLE CASTILLO Primary Care Provider [phone] ALLERGIES No Known Allergies RESULTS Component Value Reference Range Notes MICROALBUMIN CREATININE URIN E RATIO Reviewed date:04/10/2025 04:49:34 PM Interpretation: Performing Lab: Notes/Report: Creatinine, Urine 26.0 Microalb, Ur <5.0 0.0-29.0 mg/L Microalb/Creat Ratio <19 <30 mg/g creat Urinalysis, Complete w/ME-00 [id number] Reviewed date:10/31/2024 10:34:00 AM Interpretation: Performing Lab:[facility], [address] [place] [address], Phone - [phone], Director - Stephanie Notes/Report: Specific [place] 1.013 1.005-1.030 pH 6.0 5.0-7.5 Urine-Color Yellow Yellow Appearance Clear Clear WBC Esterase Negative Negative Protein Negative Negative/Trace Glucose Negative Negative Ketones Negative Negative Occult Blood Negative Negative Bilirubin Negative Negative Urobilinogen,Semi-Qn 0.2 0.2-1.0 mg/dL Nitrite, Urine Negative Negative Microscopic Examination Micr oscopic follows if indicated. Microscopic Examination See below: Micr oscopic was indicated and was performed. WBC None seen 0 - 5 /hpf RBC None seen 0 - 2 /hpf Epithelial Cells (non renal) None seen 0 - 10 /hpf Epithelial Cells (renal) Casts None seen None seen /lpf Cast Type Crystals Crystal Type Mucus Threads Bacteria None seen None seen/Few Yeast Trichomonas Comment Lipid Panel-[id number] Reviewed date:10/10/2024 08:38:01 AM Interpretation: Performing Lab:[facility] [place], [address] [facility], Phone - [phone], Director - Stephanie Notes/Report: Cholesterol, Total 128 100-199 mg/dL Triglycerides 117 0-149 mg/dL HDL Cholesterol 42 >39 mg/dL VLDL Cholesterol Jimbo 21 5-40 mg/dL LDL Chol Calc ([facility]) 65 0-99 mg/dL LDL Calc Comment: PROTEIN ELECTROPHORESIS, SER UM Reviewed date:05/08/2025 03:11:40 PM Interpretation: Performing Lab: Notes/Report: Total Protein 7.0 6.0-8.0 g/dL Albumin, Serum 3.5 2.9-4.1 g/dL Alpha 1 Globulin (g/dL) 0.2 0.1-0.5 g/dL Alpha 2 Globulin (g/dL) 0.9 0.7-1.5 g/dL Beta (g/dL) 0.8 0.7-1.5 g/dL Gamma Globulin (g/dL) 1.5 0.7-1.9 g/dL PATHOLOGIST REVIEW PROTEIN E LECTROPHORESIS Reviewed date:04/16/2025 06:34:02 AM Interpretation: Performing Lab: Notes/Report: Pathologist Interpretation PATHOLOGIST REVIEW IMMUNOFIX ATION Reviewed date:04/16/2025 06:34:02 AM Interpretation: Performing Lab: Notes/Report: Pathologist Interpretation BMP8+eGFR-[id number] Reviewed date:10/10/2024 08:38:01 AM Interpretation: Performing Lab:[facility] [place], [address] [facility], Phone - [phone], Director - Stephanie Notes/Report: Glucose 116 70-99 mg/dL BUN 24 8-27 mg/dL Creatinine 1.39 0.76-1.27 mg/dL eGFR 50 >59 mL/min/1.73 BUN/Creatinine Ratio 17 10-24 Sodium 140 134-144 mmol/L Potassium 4.5 3.5-5.2 mmol/L Chloride 103 96-106 mmol/L Carbon Dioxide, Total 24 20-29 mmol/L Anion Gap 13.0 10.0-18.0 mmol/L Calcium 9.1 8.6-10.2 mg/dL CBC WITH AUTO DIFFERENTIAL Reviewed date:04/10/2025 03:20:43 PM Interpretation: Performing Lab: Notes/Report: WBC 7.1 4.8-10.8 K/mcL RBC 4.50 4.50-5.50 M/mcL Hemoglobin 14.8 13.5-17.5 g/dL Hematocrit 44.6 42.0-54.0 % MCV 98.7 79.0-98.0 FL MCH 32.7 27.0-32.0 pcg MCHC 33.2 32.0-37.0 g/dL RDW 13.4 11.0-15.0 % Platelets 178 130-400 K/mcL MPV 10.6 7.0-11.0 FL NRBC 0.0 <1.0 % NRBC Absolute 0.00 <0.10 K/mcL Neutrophils Relative 66.4 Lymphocytes Relative 16.5 Monocytes Relative 12.7 Eosinophils Relative 3.5 Basophils Relative 0.6 Immature Granulocytes Relative 0.3 Neutrophils Absolute 4.70 1.50-7.00 K/mcL Lymphocytes Absolute 1.17 1.00-5.00 K/mcL Monocytes Absolute 0.90 0.20-1.00 K/mcL Eosinophils Absolute 0.25 0.00-0.50 K/mcL Basophils Absolute 0.04 0.00-0.20 K/mcL Immature Granulocytes Absolute 0.02 0.00-0.03 K/mcL BMP8+eGFR-[id number] Reviewed date:10/31/2024 08:18:18 AM Interpretation: Performing Lab:[facility], [address] [facility], [place], Phone - [phone], Director - Stephanie Notes/Report: Glucose 133 70-99 mg/dL BUN 22 8-27 mg/dL Creatinine 1.39 0.76-1.27 mg/dL eGFR 50 >59 mL/min/1.73 BUN/Creatinine Ratio 16 10-24 Sodium 137 134-144 mmol/L Potassium 4.4 3.5-5.2 mmol/L Chloride 101 96-106 mmol/L Carbon Dioxide, Total 23 20-29 mmol/L Anion Gap 13.0 10.0-18.0 mmol/L Calcium 9.0 8.6-10.2 mg/dL BASIC METABOLIC PANEL Reviewed date:04/10/2025 04:49:34 PM Interpretation: Performing Lab: Notes/Report: Sodium 139 133-145 mmol/L Potassium 4.1 3.5-5.5 mmol/L Chloride 106 96-110 mmol/L CO2 27 21-32 mmol/L Anion Gap 6 3-11 Glucose 79 70-100 mg/dL BUN 22 5-25 mg/dL Creatinine 1.25 0.70-1.30 mg/dL eGFR 57 >=60 mL/min/1.73m2 Calculation based on the Chronic Kidney Disease Epidemiology Collaboration (CKD-EPI) equation refit without adjustment for race. BUN/Creatinine Ratio 17.6 Calcium 8.9 8.5-10.5 mg/dL PROTEIN, TOTAL Reviewed date:04/10/2025 04:49:35 PM Interpretation: Performing Lab: Notes/Report: Total Protein 7.6 6.0-8.0 g/dL PROTEIN, TOTAL Reviewed date:05/05/2025 10:31:34 PM Interpretation: Performing Lab: Notes/Report: Total Protein 7.1 6.0-8.0 g/dL PROTEIN ELECTROPHORESIS, SER UM Reviewed date:04/16/2025 06:34:02 AM Interpretation: Performing Lab: Notes/Report: Total Protein 7.6 6.0-8.0 g/dL Albumin, Serum 4.0 2.9-4.1 g/dL Alpha 1 Globulin (g/dL) 0.2 0.1-0.5 g/dL Alpha 2 Globulin (g/dL) 1.0 0.7-1.5 g/dL Beta (g/dL) 0.9 0.7-1.5 g/dL Gamma Globulin (g/dL) 1.5 0.7-1.9 g/dL Monoclonal gammopathy. Abnormal pattern with immeasurable M-spike of gamma globulin mobility. Serum Immunofixation performed on this specimen demonstrated IgG [place] monoclonal protein. CBC, Platelet, w/o Different ial-[id number] Reviewed date:10/10/2024 08:38:01 AM Interpretation: Performing Lab:[facility], [address] [facility], [place], Phone - [phone], Director - Stephanie Notes/Report: WBC 7.7 3.4-10.8 x10E3/uL RBC 4.62 4.14-5.80 x10E6/uL Hemoglobin 15.4 13.0-17.7 g/dL Hematocrit 46.6 37.5-51.0 % MCV 101 79-97 fL MCH 33.3 26.6-33.0 pg MCHC 33.0 31.5-35.7 g/dL RDW 12.7 11.6-15.4 % Platelets 216 150-450 x10E3/uL NRBC PATHOLOGIST REVIEW IMMUNOFIX ATION Reviewed date:05/07/2025 04:23:48 PM Interpretation: Performing Lab: Notes/Report: Pathologist Interpretation IMMUNOFIXATION ELECTROPHORES IS Reviewed date:05/07/2025 04:24:39 PM Interpretation: Performing Lab: Notes/Report: Immunofixation Result, Serum IgG [place] monoclonal immunoglobulins detected. HEPATIC FUNCTION PANEL Reviewed date:04/10/2025 04:49:35 PM Interpretation: Performing Lab: Notes/Report: Total Protein 7.3 6.0-8.0 g/dL Albumin 3.9 3.2-5.0 g/dL Total Bilirubin 0.9 0.0-1.4 mg/dL Bilirubin, Direct 0.3 0.0-0.3 mg/dL Bilirubin, Indirect 0.6 0.0-1.1 mg/dL ALT (SGPT) 16 10-60 unit/L AST (SGOT) 30 10-42 unit/L Alkaline Phosphatase 68 42-121 unit/L IMMUNOFIXATION ELECTROPHORES IS Reviewed date:04/16/2025 06:34:02 AM Interpretation: Performing Lab: Notes/Report: Immunofixation Result, Serum IgG [place] monoclonal immunoglobulins detected. IMMUNOGLOBULINS IGG, IGA, IG M Reviewed date:05/07/2025 10:19:05 AM Interpretation: Performing Lab: Notes/Report: Total IgG 2600 333-5637 mg/dL IgA 174 61-348 mg/dL IgM 96 23-259 mg/dL Urinalysis, Complete w/ME-00 3772 Reviewed date:10/10/2024 08:38:01 AM Interpretation: Performing Lab:[facility], [address], [place], Phone - [phone], Director - Stephanie Notes/Report: Specific [place] 1.025 1.005-1.030 pH 5.5 5.0-7.5 Urine-Color Yellow Yellow Appearance Clear Clear WBC Esterase Negative Negative Protein Trace Negative/Trace Glucose Negative Negative Ketones Negative Negative Occult Blood Negative Negative Bilirubin Negative Negative Urobilinogen,Semi-Qn 1.0 0.2-1.0 mg/dL Nitrite, Urine Negative Negative Microscopic Examination Micr oscopic follows if indicated. Microscopic Examination See below: Micr oscopic was indicated and was performed. WBC None seen 0 - 5 /hpf RBC 0-2 0 - 2 /hpf Epithelial Cells (non renal) None seen 0 - 10 /hpf Epithelial Cells (renal) Casts None seen None seen /lpf Cast Type Crystals Crystal Type Mucus Threads Bacteria None seen None seen/Few Yeast Trichomonas Comment BASIC METABOLIC PANEL Reviewed date:05/05/2025 10:31:34 PM Interpretation: Performing Lab: Notes/Report: Sodium 136 133-145 mmol/L Potassium 4.2 3.5-5.5 mmol/L Chloride 103 96-110 mmol/L CO2 27 21-32 mmol/L Anion Gap 6 3-11 Glucose 82 70-100 mg/dL BUN 23 5-25 mg/dL Creatinine 1.60 0.70-1.30 mg/dL eGFR 42 >=60 mL/min/1.73m2 Calculation based on the Chronic Kidney Disease Epidemiology Collaboration (CKD-EPI) equation refit without adjustment for race. BUN/Creatinine Ratio 14.4 Calcium 9.3 8.5-10.5 mg/dL IMMUNOGLOBULIN IGD Reviewed date:05/11/2025 08:51:37 AM Interpretation: Performing Lab: Notes/Report: IgD, Serum <7 <179 mg/L Test Performed by [facility], [facility], [address] [place] [address] Jose Luis Gandhi M.D., Ph.D., Director of Laboratories , CLIA [id number] [employer] EE LIGHT CHAINS Reviewed date:05/08/2025 03:11:40 PM Interpretation: Performing Lab: Notes/Report: [place] Free Light Chain 3.98 0.33-1.94 mg/dL Lambda Free Light Chain 2.59 0.57-2.63 mg/dL [place]/Lambda FLC Ratio 1.54 0.26-1.65 Test performed at [facility], [address] , [place] [address] Lili Rojas MD, PhD - University Controller IMMUNOGLOBULIN IGG Reviewed date:05/05/2025 10:31:34 PM Interpretation: Performing Lab: Notes/Report: Total IgG 5952 654-2114 mg/dL IMMUNOGLOBULIN IGM Reviewed date:05/05/2025 10:31:35 PM Interpretation: Performing Lab: Notes/Report: IgM 93 23-259 mg/dL PATHOLOGIST REVIEW PROTEIN E LECTROPHORESIS Reviewed date:05/08/2025 03:11:40 PM Interpretation: Performing Lab: Notes/Report: Pathologist Interpretation Prostate-Specific Ag (PSA)-0 11014 Reviewed date:10/10/2024 08:38:01 AM Interpretation: Performing Lab:[facility] [place], [address] [facility], Phone - [phone], Director - Stephanie Notes/Report: Prostate Specific Ag 0.2 0.0-4.0 ng/mL [place] ECLIA methodology. . According to the [place] [employer], Serum PSA should decrease and remain at undetectable levels after radical prostatectomy. The AUA defines biochemical recurrence as an initial PSA value 0.2 ng/mL or greater followed by a subsequent confirmatory PSA value 0.2 ng/mL or greater. Values obtained with different assay methods or kits cannot be used interchangeably. Results cannot be interpreted as absolute evidence of the presence or absence of malignant disease. Albumin/Creatinine Ratio,i ne-[id number] Reviewed date:11/01/2024 09:53:33 AM Interpretation: Performing Lab:[facility] [place], [address] [facility], [place], Phone - [phone], Director - Stephanie Notes/Report: Creatinine, Urine 67.5 Not Estab. mg/dL Albumin, Urine 12.9 Not Estab. ug/mL Alb/Creat Ratio 19 0-29 mg/g creat Normal: 0 - 29 Moderately increased: 30 - 300 Severely increased: >300 LIPID PANEL WITH REFLEX TO D IRECT LDL Reviewed date:04/10/2025 04:49:34 PM Interpretation: Performing Lab: Notes/Report: Cholesterol 122 0-200 mg/dL Triglycerides 90 0-150 mg/dL HDL 49 >=40 mg/dL LDL Calculated 55 0-100 mg/dL VLDL Cholesterol Jimbo 18 Non HDL Chol. (LDL+VLDL) 73 <145 mg/dL Chol/HDL Ratio 2.5 0.0-4.4 IMMUNOGLOBULINS IGG, IGA, IG M Reviewed date:04/13/2025 10:06:45 AM Interpretation: Performing Lab: Notes/Report: Total IgG 0596 191-8901 mg/dL IgA 170 61-348 mg/dL IgM 96 23-259 mg/dL REASON FOR REFERRAL Reason (2)11/05/[address] w app[address] C ons[address]ation Dr. Ordaz for elevated serum creatinine send copy of the notes in the last year for me and all the labs in the last year and Dr. Bolaños last note to him Diagnosis 1 Elevated serum creat inine (R79.89) Referral Organization [facility] Referring Provider First Name ARIELLE Referring Provider Last Name ANNA Referring Provider Speciality Internal M edicine Referred Provider CARTER ORDAZ Referred Provider Specialty Nephrology General Notes Maggie [facility] 10/31/2024 02:27:21 PM > Patient calling advised has not heard regarding this referral from Dr Gonzalez office., Dianna [facility] 11/04/2024 03:48:30 PM > Patient calling because he has not heard anything regarding the urgent referral for Dr. Gonzalez., Lynnette CAMEJO P Admin 11/04/2024 03:56:23 PM > on 10/31 Rosy madison , Rosy CAMEJO [place] 10/31/2024 09:38:29 AM > pt saw dr muñoz not to long ago doesnt want ov with disc pad grinding machine feeder advised dr muñoz said everything was okay, Rosy CAMEJO [place] 11/04/2024 03:59:00 PM > pt needs dr gonzalez per NELL solorio Lori P Admin 11/05/2024 08:33:36 AM > faxed medical referral, notes and labs to [phone] requesting an URGENT visit please>no referral required with pt's insurance plans, Lauren [facility] Call Center 11/05/2024 02:36:08 PM >[facility] asking for demographics and entire referral: fax [phone], phone [phone]. See message started., Wendy CAMEJOi P Admin 11/06/2024 07:29:37 AM > refaxed referraL to [facility] Referral Priority Urgent MEDICATIONS Medication SIG (Take, Route, Frequency, Duration) Notes Start Date End Date Status amLODIPine Besylate 5 MG TAKE 1 TABLET B Y MOUTH EVERY DAY for 90 Active Metoprolol Succinate ER 25 MG TAKE 1 TABLET BY MOUTH EVERY DAY for 90 Active Finasteride 5 MG 1 tablet Orally Once a day for 30 day(s) Active Fluticasone Propionate 50 MCG/ACT SPRAY 1 SPRAY INTO EACH NOSTRIL TWICE A DAY for 90 Active Metoprolol Succinate 25 MG 1 capsule Ora lly Once a day for 30 day(s) Active Eliquis 5 MG TAKE 1 TABLET BY AMALIA TH TWICE A DAY FOR 90 DAYS for 90 Active LORazepam 1 MG 1 tablet Orally twic e a day as needed for 30 day(s) 04/03/2025 Active Amoxicillin 500 MG 4 capsule Orally 1 h our before procedure for 2 days 12/06/2023 Active Tamsulosin HCl 0.4 MG 1 capsule Orally O nce a day for 30 day(s) Active Ipratropium [place] 0.06 % 2 sprays Nasa lly q 8 hours for 15 day(s) 10/06/2024 Unknown Simvastatin 20 MG TAKE 1 TABLET BY AMALIA TH EVERY DAY IN THE EVENING for 90 Active Incruse Ellipta 62.5 MCG/ACT INHALE 1 DOSE DAILY for 90 Active IMMUNIZATIONS Vaccine Route Administration Date Status Comme nts [id number] IM Intramuscular 10/09/2023 Administered SOCIAL HISTORY Tobacco Use: Social History Observation Description Date Details (start date - stop date) Current Smoker NA - NA Sex Assigned At : Social History Observation Description Sex Assigned At Unknown Smoking Question Answer Notes Are you a: current smoker PROBLEMS Problem Type ICD Code Onset Dates Problem Status W/U Status Risk SNOMED Code Notes Problem Gastro-esophageal reflux disease without esophagitis (K21.9) Active confirmed Gastro-esophage al reflux disease without esophagitis (950920434) Problem Essential (primary) hypertension (I10) Active confirmed Essential hypertension (42849770) Problem Chronic obstructive pulmonary disease, unspecified (J44.9) Active confirmed Chronic obstructive pulmonary disease (80057484) Problem Chronic fatigue, unspecified (R53.82) Active confirmed Chronic fatigue syndrome (disorder) (86799456) Problem Malignant neoplasm of unspecified part of unspecified bronchus or lung (C34.90) Active confirmed Malignant tumor of lung (199726528) Problem Malignant neoplasm of unspecified kidney, except renal pelvis (C64.9) Active confirmed Primary malignant neoplasm of kidney (98548776) Problem Disorder of lipoprotein metabolism, 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 confirmed Disorder of lipoprotein storage and metabolism (disorder) (792949547) Problem Nicotine dependence, cigarettes, uncomplicated (F17.210) Active confirmed Tobacco user (846705991) Problem Unspecified atrial fibrillation (I48.91) Active confirmed Atrial fibrillation (31002135) VITAL SIGNS Blood pressure diastolic 78 mm Hg 03/10/2025 Height 72 in 03/10/2025 Blood pressure systolic 120 mm Hg 03/10/2025 Weight 146 lbs 03/10/2025 BMI 19.80 kg/m2 03/10/2025 Encounters Encounter Location Date Provider Diagnosis [address] [address] 06/11/2024 ARIELLE CASTILLO [address] [address] 07/14/2024 ARIELLE CASTILLO [address] [address] 08/11/2024 ARIELLE CASTILLO [address] [address] 09/01/2024 ARIELLE CASTILLO [place] [phone] 10/06/2024 ARIELLE CASTILLO Essential (primary) hypertension I10 ; Disorder of lipoprotein metabolism, unspecified E78.9 ; Unspecified atrial fibrillation I48.91 ; Gastro-esophageal reflux disease without esophagitis K21.9 ; Chronic obstructive pulmonary disease, unspecified J44.9 ; Malignant neoplasm of unspecified kidney, except renal pelvis C64.9 ; Malignant neoplasm of unspecified part of unspecified bronchus or lung C34.90 ; Chronic fatigue, unspecified R53.82 and Acute sinusitis, recurrence not specified, unspecified location J01.[address] [address] 10/06/2024 ARIELLE CASTILLO [address] [address] 10/10/2024 ARIELLE CASTILLO Elevated serum creatinine R79.89 [place] [address] [place] [address] 10/31/2024 ARIELLE CASTILLO [facility] [address] [place] [address] 11/04/2024 ARIELLE ANNA [address] [address] 11/05/2024 ARIELLE CASTILLO [address] [address] 11/27/2024 ARIELLE CASTILLO [address] [address] 12/08/2024 ARIELLE CASTILLO [address] [address] 03/10/2025 ARIELLE CASTILLO Essential (primary) hypertension I10 ; Disorder of lipoprotein metabolism, unspecified E78.9 ; Unspecified atrial fibrillation I48.91 ; Gastro-esophageal reflux disease without esophagitis K21.9 ; Chronic obstructive pulmonary disease, unspecified J44.9 ; Malignant neoplasm of unspecified kidney, except renal pelvis C64.9 and Malignant neoplasm of unspecified part of unspecified bronchus or lung C34.[address] [address] 03/11/2025 ARIELLE CASTILLO Essential (primary) hypertension I10 [address] [address] 04/03/2025 ARIELLE ANNA [address] [address] 04/16/2025 ARIELLE CASTILLO Abnormal protein electrophoresis R77.[address] [address] 05/05/2025 ARIELLE CASTILLO [address] [address] 05/05/2025 ARIELLE CASTILLO [address] [address] 05/07/2025 ARIELLE CASTILLO [address] [address] 05/08/2025 ARIELLE CASTILLO ASSESSMENTS Encounter Date Diagnosis Assessment Notes Treatment Notes Treatment Clinical Notes Section Notes 10/06/2024 Essential (primary) hypertension (ICD-10 - I10) Blood pressure stable well-controlled no change in therapy check EKG. 10/06/2024 Disorder of lipoprotein metabolism, unspecified (ICD-10 - E78.9) Continue statin therapy check lipid profile review of systems negative or side effects LDL goal less than 100 03/10/2025 Essential (primary) hypertension (ICD-10 - I10) blood pressure stable well-controlled no change in therapy check labs. 03/10/2025 Disorder of lipoprotein metabolism, unspecified (ICD-10 - E78.9) Check lipid profile LDL goal less than 70 optimally follow-up in 6 months at goal continue statin at present dose of systems negative for side effects 10/10/2024 Elevated serum creatinine (ICD-10 - R79.89) 03/11/2025 Essential (primary) hypertension (ICD-10 - I10) 04/16/2025 Abnormal protein electrophoresis (ICD-10 - R77.9) 03/10/2025 Unspecified atrial fibrillation (ICD-10 - I48.91) Stable continue beta-scott and Eliquis. No CHF no chest pain 10/06/2024 Unspecified atrial fibrillation (ICD-10 - I48.91) Stable. Continue Eliquis and beta-scott check EKG 03/10/2025 Gastro-esophageal reflux disease without esophagitis (ICD-10 - K21.9) Patient doing well off PPI. May use as needed liquid antacid. 10/06/2024 Gastro-esophageal reflux disease without esophagitis (ICD-10 - K21.9) Stable doing well check PPI 10/06/2024 Chronic obstructive pulmonary disease, unspecified (ICD-10 - J44.9) No wheezing no significant shortness of breath O2 sat stable 03/10/2025 Chronic obstructive pulmonary disease, unspecified (ICD-10 - J44.9) Stable doing well physical exam normal no symptoms O2 sat I am pretty good range symptoms 10/06/2024 Malignant neoplasm of unspecified kidney, except renal pelvis (ICD-10 - C64.9) Stable. PET/CT up-to-date. Follow-up with [facility] oncology 03/10/2025 Malignant neoplasm of unspecified kidney, except renal pelvis (ICD-10 - C64.9) Stable. 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 Status post resection of 1 cancer and radiation to the 2 other spots follow-up with oncology and Dr. Junior 10/06/2024 Chronic fatigue, unspecified (ICD-10 - R53.82) 10/06/2024 Acute sinusitis, recurrence not specified, unspecified location (ICD-10 - J01.90) Add Augmentin 875 twice daily for 10 days. Add Atrovent nasal spray 0.06% 3 times daily for 2 weeks PLAN OF TREATMENT Pending Test Test Name Order Date EKG 03/10/2025 Future Test Test Name Order Date COMPLETE URINALYSIS 10/08/2023 CBC, Platelet, w/o Differential-[id number] 03/02/2025 Lipid Panel-[id number] 03/02/2025 Hepatic Function Panel ([id number] 2024 BMP8+eGFR-[id number] 03/02/2025 Immunofixation, Serum-[id number] 03/11/2025 Albumin/Creatinine Ratio,Urine-[id number] Protein Elec + Interp, Serum-[id number] 10/2024 Immunofixation, Serum-[id number] 05/14/2025 Immunoglobulin G, Qn, Serum-088159 05/14 Immunoglobulin M, Qn, Serum-079437 05/14 Immunoglobulin D, Quant, Serum-[id number] Free K+L Lt Chains,Qn,S-649628 Protein Elec + Interp, Serum-[id number] 12/2024 BMP8+eGFR-[id number] 05/14/2025 Next Appt Details Provider Name:ARIELLE KIM, 09/29/2025 02:15:00 PM, [address] [place], [address], Insurance Providers Payer Name Payer Address Payer Phone Subscriber Number Group Number Insured Name Patient Relationship to Insured Coverage Start Date Coverage End Date [employer] 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 Pérez 2016January 2019 left upper lobe resection of th e lung May 2020 left lower lobe mets stat us post SBRT to the left lower lobe August 2023 right upper lo be suspicious lesion being followed by Dr. Junior and Dr. [place] Dermatology Dr. Mares September CAT scan ches t abdomen and pelvis shows suspicious lesion right upper lobe. No metastatic disease in the abdomen and pelvis seen History of bladder cancer status post BC G treatment Chest CT February 2024 stable no new nodules Right upper lobe lesion status post radi ation therapy Left upper lobe lobectomy 2018. Left lower lobe recurrence status post r adiation therapy PET/CT September 2024 Surgical History Surgery Date(Month/Year)
--- OUTSIDE RECORDS SUMMARY | 2025-05-19 15:10 | XMS_ITS ---
Author Name [facility] Organization Unknown Encounters Encounter Type Encounter Reason Primary Diagnosis Location Date Ambulatory [facility] 06/20/2024 Care Team Organization Name Specialty Phone Email Start Date End Da te [facility] 2024
== END 2025-05-19 13:49 | disposition home or self-care (01) ==
LOC: HO.HKAS 12:47
PROVIDERS: PCP Internal Medicine; Visit Provider Internal Medicine Nephrology
DX: N18.31 Chronic kidney disease, stage 3a (principal); Z90.5 Acquired absence of kidney; I10 Essential (primary) hypertension; D47.2 Monoclonal gammopathy
CPT/HCPCS: 99214

== ENCOUNTER → 2025-05-19 12:47 | Outpatient (BNVA) | payer MEDICARE, OTHER, SELFPAY | PROVIDERS: PCP Internal Medicine; Visit Provider Internal Medicine Nephrology | DX: N18.31 Chronic kidney disease, stage 3a (principal); Z90.5 Acquired absence of kidney; I10 Essential (primary) hypertension; D47.2 Monoclonal gammopathy; Z85.528 Personal history of other malignant neoplasm of kidney; F17.210 Nicotine dependence, cigarettes, uncomplicated | CPT/HCPCS: 99212 ==